=== PATIENT | female | born 1955 | race Caucasian/White ===

== ENCOUNTER 2016-12-20 22:12 | Outpatient (CLI) | payer MEDICARE, BC, MEDICAID ==
[~2016-12-20 22:12] MED LIST: AGM875T PO; ASCO500T75 PO; ASPI-586 PO; CALC600T12 PO; CETI10TA17 PO; LISI-552 PO; MECL-106 PO; MELO7.5T46 PO; METH4TAB PO; METO-351 PO; MIRA50TA PO; OMG1KC PO; PRED5TAB PO; TRAM50TA2 PO; ZYRTEC
--- OUTSIDE RECORDS SUMMARY | 2016-12-20 22:15 | XMS REPORT | Continuity of Care Document ---
Author Author [facility] Organization [facility] Address Unknown Phone Unavailable Care Team Providers Care Hosiery Pairer Name Role Phone BEATRIZ DURBIN DO PCP Insurance Providers Payer Name Policy Number Subscriber Name Relationship [employer] Medicare [id number] Rae Prince 18 Self / Same As Patient Medicaid [place] [id number] Rae Prince 18 Self / Same As Patient Advance Directives Directive Response Recorded Date/Time Advance Directives Yes 07/18/16 7:04pm Health Care Power of Director Of Rehabilitation Y LINDY PRINCE SPOUSE 07/18/16 7:04pm Organ Donor Yes 07/18/16 7:04pm Problems Active Problems Medical Problem Onset Date Status Rash and nonspecific skin eruption Unknown Acute Medications Current Home Medications Medication Dose Units Route Directions Days/Qty Instructions Start Date Cetirizine Hcl (Zyrtec) 10 Mg 10 Mg Oral Daily 04/28/13 Lisinopril 20 Mg 20 Mg Oral Bedtime 03/19/16 Meclizine Hcl 25 Mg 25 Mg Oral Three Times A Day as needed for Dizziness 03/19/16 [place] 3 Polyunsat Fatty Acids 1,000 Mg 1,000 Mg Oral Daily ONE IN AM 2 AT BEDTIME 03/19/16 [place] 3 Polyunsat Fatty Acids 1,000 Mg 2,000 Mg Oral Bedtime ONE IN AM 2 TABLETS AT BEDTIME 03/19/16 Metoprolol Succinate 25 Mg 25 Mg Oral Bedtime 03/19/16 Meloxicam 7.5 Mg 7.5 Mg Oral Twice A Day 03/19/16 Aspirin 81 Mg 81 Mg Oral Daily 03/19/16 Calcium Carbonate 600 Mg 600 Mg Oral Daily 03/19/16 Tramadol Hcl 50 Mg 100 Mg Oral Every 6 Hours for Pain TWO TABLETS OF 50 MG FOR 100 MG TOTAL DOSE 03/19/16 Mirabegron 50 Mg 50 Mg Oral Daily 07/18/16 Prednisone 5 Mg 40 Mg Oral As Directed 36 40 mg by mouth on day 1. Decrease by 5 mg by mouth daily until gone. 07/18/16 Past Home Medications Medication Directions Ordered Status [Zte] , 09/07/12 Discontinued Amoxicillin/Clavulanate Potassium 1 Tab Tablet, 1 Tab Oral Twice A Day Discontinued Methylprednisolone 4 Mg/Dose-Pack Tab.ds.pk, 0 Oral As Directed 09/07/12 Discontinued Ascorbic Acid 500 Mg Tablet, 500 Mg Oral Daily 03/19/16 Discontinued Social History Social History Problem Response Recorded Date/Time Recent Foreign Travel No 11/13/2016 1:13pm Recent Hopitalizations No 07/18/2016 7:04pm Hospital Discharge Instructions No hospital discharge instructions. Plan of Care Discharge Date 11/13/16 1:40pm Prescriptions See Medication Section Functional Status No functional status results. Allergies, Adverse Reactions, Alerts Allergen Type Severity Reaction Status Last Updated meperidine HCl Allergy Unknown Active 03/03/16 oxycodone HCl Allergy Unknown Active 03/03/16 Acetaminophen Allergy Unknown Active 03/03/16 Methadone Allergy Unknown Active 03/03/16 TAPE Allergy Unknown Active 03/03/16 Immunizations No immunization records. Vital Signs No known vital signs results. Results Laboratory Results Test Name Result Units Flags Reference Collection Date/Time Result Date/ Time Comments Total Bilirubin 0.8 MG/DL 0.1-1.0 10/14/2016 10:23am 10/14/2016 10: 49am Direct Bilirubin 0.3 MG/DL 0.0-0.3 10/14/2016 10:23am 10/14/2016 10: 49am Indirect Bilirubin 0.5 MG/DL 10/14/2016 10:23am 10/14/2016 10:49am Alkaline Phosphatase 74 U/L 40-136 10/14/2016 10:23am 10/14/2016 10: 49am Aspartate Amino Transf (AST/SGOT) 16 U/L 5-34 10/14/2016 10:23am 2015 10:49am Alanine Aminotransferase (ALT/SGPT) 7 U/L 0-55 10/14/2016 10:23am 10/14 10:49am Total Protein 6.0 G/DL L 6.4-8.2 10/14/2016 10:23am 10/14/2016 10:49am Albumin 3.4 G/DL 3.2-4.5 10/14/2016 10:23am 10/14/2016 10:49am Triglycerides Level 86 MG/DL <150 10/14/2016 10:23am 10/14/2016 10: 49am Cholesterol Level 147 MG/DL < 200 10/14/2016 10:23am 10/14/2016 10: 49am HDL Cholesterol 35 MG/DL L 40-60 10/14/2016 10:23am 10/14/2016 10:49am LDL Cholesterol Direct 96 MG/DL 1-129 10/14/2016 10:23am 10/14/2016 10: 49am VLDL Cholesterol 17 MG/DL 5-40 10/14/2016 10:23am 10/14/2016 10:49am Procedures Procedure Status Date Provider(s) 48 hour Holter monitoring Completed 11/06/16 VAMSHI RODRIGUES MD 48 hour Holter monitoring Completed 11/06/16 VAMSHI RODRIGUES MD Encounters Encounter Location Arrival/Admit Date Discharge/Depart Date Attending Provider Departed Clinic [facility] 11/13/16 1:14pm 11/13/16 1: 40pm VAMSHI RODRIGUES MD Registered Clinic [facility] 11/06/16 9:59am VAMSHI RODRIGUES MD Registered Clinic [facility] 10/14/16 9:59am SARIAH PACHECO
== END 2016-12-21 06:30 | disposition home or self-care (01) ==
LOC: SLEEP 22:12
PROVIDERS: ATTEND Nurse Practitioner Family
DX: G47.36 Sleep related hypoventilation in conditions classified elsewhere (principal); R06.83 Snoring
CPT/HCPCS: 95810

== ENCOUNTER 2017-03-04 15:56 | Emergency (ER) | payer BC, MEDICARE, MEDICAID ==
[~2017-03-04] VITALS: Ht 157.5 cm; Wt 100.7 kg
--- NOTE | 2017-03-04 16:10 | ED Chest Pain ---
General Chief Complaint: Chest Wall/Rib Pain Stated Complaint: TROUBLE BREATHING Source: patient Exam Limitations: no limitations History of Present Illness Time seen by provider: 16:08 Initial Comments To ER with reports of pain when breathing. Pain is in the right lung she states pain she is unable to take a deep breath because of this pain. She does not feel short of breath, only has pain with breathing. She was originally started on oxygen at 1 L/m at night per nasal cannula for sleep apnea. She states that she's had troubles with nasal congestion seems to be brought on by wearing the oxygen. She has tried Flonase and humidified oxygen without relief. She has had a cough that is been nonproductive starting today. No fevers or chills. No rhinorrhea sore throat. Timing/Duration: 12-24 hours Severity/Quality: sharp Radiation: no radiation Activities at Onset: none ASA po QUENCHING MACHINE OPERATOR: No NTG SL QUENCHING MACHINE OPERATOR: No Allergies and Home Medications Allergies Coded Allergies: acetaminophen (Verified Allergy, Unknown, 03/03/16) meperidine HCl (Verified Allergy, Unknown, 03/03/16) methadone (Verified Allergy, Unknown, 03/03/16) oxycodone HCl (Verified Allergy, Unknown, 03/03/16) Uncoded Allergies: TAPE (Allergy, Unknown, 03/03/16) Home Medications Allopurinol 300 Mg Tablet, #30 (Reported) Aspirin 81 Mg Tablet.dr, 81 MG PO DAILY, (Reported) Calcium Carbonate 600 Mg Tablet, 600 MG PO DAILY, (Reported) Cetirizine Hcl 10 Mg Tablet, 10 MG PO DAILY, (Reported) Gabapentin 100 Mg Capsule, #90 (Reported) Lansoprazole 30 Mg Capsule.dr, #30 (Reported) Lisinopril 20 Mg Tablet, 20 MG PO HS, (Reported) Meclizine HCl 25 Mg Tablet, 25 MG PO TID PRN for DIZZINESS, (Reported) Meloxicam 7.5 Mg Tablet, 7.5 MG PO BID, (Reported) Metoprolol Succinate 25 Mg Tab.er.24h, 25 MG PO HS, (Reported) Mirabegron 50 Mg Tab.er.24h, 50 MG PO DAILY, (Reported) [place] 3 Polyunsat Fatty Acids 1,000 Mg Cap, 1,000 MG PO DAILY, (Reported) ONE IN AM 2 AT BEDTIME [place] 3 Polyunsat Fatty Acids 1,000 Mg Cap, 2,000 MG PO HS, (Reported) ONE IN AM 2 TABLETS AT BEDTIME Tramadol HCl 50 Mg Tablet, 100 MG PO Q6H, (Reported) TWO TABLETS OF 50 MG FOR 100 MG TOTAL DOSE Review of Systems Constitutional: see HPI EENTM: No Symptoms Reported Respiratory: See HPI, Denies Shortness of Air Cardiovascular: No Symptoms Reported Gastrointestinal: No Symptoms Reported Genitourinary: No Symptoms Reported Musculoskeletal: no symptoms reported Skin: no symptoms reported Psychiatric/Neurological: No Symptoms Reported Endocrine: No Symptoms Reported Hematologic/Lymphatic: No Symptoms Reported Past Bhbusff-Sythpe-Rujgmi Hx Patient Social History Recent Foreign Travel: No Contact w/Someone Who Travel: No Recent Hopitalizations: No Immunizations Up To Date Tetanus Booster (TDap): Unknown Surgeries HX Surgeries: Yes (cysts removed from R hip, lap band, back surgery, heart cath , cataracts) Surgeries: Abdominal, Orthopedic Respiratory Hx Respiratory Disorders: No Cardiovascular Hx Cardiac Disorders: Yes (SVT) Cardiac Disorders: Hypertension, Irregular Heartbeat Neurological Hx Neurological Disorders: No Reproductive System Hx Reproductive Disorders: No Genitourinary Hx Genitourinary Disorders: Yes (overactive bladder) Gastrointestinal Hx Gastrointestinal Disorders: No Musculoskeletal Hx Musculoskeletal Disorders: Yes (multiple back surgeries) Musculoskeletal Disorders: Fibromyalgia Endocrine Hx Endocrine Disorders: No HEENT HX ENT Disorders: No Cancer Hx Cancer: No Psychosocial Hx Psychiatric Problems: No Blood Transfusions Hx Blood Disorders: No Physical Exam Vital Signs Vital Sign - Last 12Hours 03/04/17 16:00 Temp 98.1 Pulse 67 Resp 18 B/P (MAP) 144/76 Pulse Ox 99 O2 Delivery Room Air Capillary Refill : General Appearance: No Apparent Distress, WD/WN, Other (arrival to the emergency room 6 she is ambulatory to that room. There is no redness or distress. Oxygen 99 percent on room air. She has very flat somber personality and dwells on her clogged nose that the oxygen that she wears only at night has been causing.) HEENT: PERRL/EOMI, TMs Normal Neck: Full Range of Motion, Normal Inspection Respiratory: Normal Breath Sounds, No Accessory Muscle Use, No Respiratory Distress Cardiovascular: Regular Rate, Rhythm, Normal Peripheral Pulses Gastrointestinal: Normal Bowel Sounds, Non Tender, Soft Extremity: Normal Capillary Refill, Normal Inspection Neurologic/Psychiatric: Alert, Oriented x3, No Motor/Sensory Deficits Skin: Normal Color, Warm/Dry Progress/Results/Core Measures Results/Orders Lab Results Laboratory Tests Test 03/04/17 16:06 Range/Units White Blood Count 8.3 4.3-11.0 10^3/uL Red Blood Count 4.19 L 4.35-5.85 10^6/uL Hemoglobin 12.9 11.5-16.0 G/DL Hematocrit 39 35-52 % Mean Corpuscular Volume 93 80-99 FL Mean Corpuscular Hemoglobin 31 25-34 PG Mean Corpuscular Hemoglobin Concent 33 32-36 G/DL Red Cell Distribution Width 13.3 10.0-14.5 % Platelet Count 197 130-400 10^3/uL Mean Platelet Volume 10.8 H 7.4-10.4 FL Neutrophils (%) (Auto) 63 42-75 % Lymphocytes (%) (Auto) 26 12-44 % Monocytes (%) (Auto) 8 0-12 % Eosinophils (%) (Auto) 3 0-10 % Basophils (%) (Auto) 0 0-10 % Neutrophils # (Auto) 5.3 1.8-7.8 X 10^3 Lymphocytes # (Auto) 2.1 1.0-4.0 X 10^3 Monocytes # (Auto) 0.7 0.0-1.0 X 10^3 Eosinophils # (Auto) 0.3 0.0-0.3 10^3/uL Basophils # (Auto) 0.0 0.0-0.1 10^3/uL Sodium Level 140 135-145 MMOL/L Potassium Level 4.1 3.6-5.0 MMOL/L Chloride Level 105 98-107 MMOL/L Carbon Dioxide Level 26 21-32 MMOL/L Anion Gap 9 5-14 MMOL/L Blood Urea Nitrogen 12 7-18 MG/DL Creatinine 0.66 0.60-1.30 MG/DL Estimat Glomerular Filtration Rate > 60 BUN/Creatinine Ratio 18 Glucose Level 91 70-105 MG/DL Calcium Level 9.2 8.5-10.1 MG/DL Total Bilirubin 0.7 0.1-1.0 MG/DL Aspartate Amino Transf (AST/SGOT) 18 5-34 U/L Alanine Aminotransferase (ALT/SGPT) 9 0-55 U/L Alkaline Phosphatase 86 40-136 U/L Troponin I < 0.30 <0.30 NG/ML B-Type Natriuretic Peptide 19.9 <100.0 PG/ML Total Protein 6.6 6.4-8.2 G/DL Albumin 3.6 3.2-4.5 G/DL My Orders Orders - TRESSA REYNOSO APRN Cbc With Automated Diff (03/04/17 16:06) Comprehensive Metabolic Panel (03/04/17 16:06) BNP (03/04/17 16:06) Chest Pa/Lat (2 View) (03/04/17 16:06) Troponin I (03/04/17 16:06) Saline Lock/Iv-Start (03/04/17 16:06) Ketorolac Injection (Toradol Injection) (03/04/17 16:15) Ct Angio Chest W (03/04/17 16:35) Iohexol Injection (Omnipaque 350 Mg/Ml 1 (03/04/17 17:00) Ns (Ivpb) (Sodium Chloride 0.9% Ivpb Bag (03/04/17 17:00) Dexamethasone Pf Injection (Decadron Pf (03/04/17 18:00) Amoxicillin/Clavulanate Tablet (Augmenti (03/04/17 18:00) Medications Given in ED Current Medications Medications Dose Ordered Sig/Pawan Route Start Time Stop Time Status Last Admin Dose Admin Iohexol 150 ml ONCE ONCE IV 03/04/17 17:00 03/04/17 17:01 DC 03/04/17 17:09 140 ML Ketorolac Tromethamine 30 mg ONCE ONCE IVP 03/04/17 16:15 03/04/17 16:16 DC 03/04/17 16:34 30 MG Sodium Chloride 100 ml ONCE ONCE IV 03/04/17 17:00 03/04/17 17:01 DC 03/04/17 17:09 80 ML Vital Signs/I&O Vital Sign - Last 12Hours 03/04/17 16:00 Temp 98.1 Pulse 67 Resp 18 B/P (MAP) 144/76 Pulse Ox 99 O2 Delivery Room Air Diagnostic Imaging Diagonstic Imaging: Xray Plain Films/CT/US/NM/MRI: chest Comments NAME: [facility] REC#: [id number] PT STATUS: REG ER : 1955 PHYSICIAN: TRESSA REYNOSO APRN ADMIT DATE: 03/04/17/ER Draft Date of Exam:03/04/17 CHEST PA/LAT (2 VIEW) INDICATION: Shortness of breath. EXAMINATION: PA and lateral chest. FINDINGS: The heart size and pulmonary vascularity are normal. The lungs are clear. There are no effusions or pneumothoraces. IMPRESSION: Negative chest. Dictated on workstation # [id number] Dict: 03/04/17 1627 Trans: 03/04/17 1629 [id number] Interpreted by: SILAS MCLEOD Electronically signed by: NAME: [facility] REC#: [id number] PT STATUS: REG ER : 1955 PHYSICIAN: TRESSA REYNOSO APRN ADMIT DATE: 03/04/17/ER Draft Date of Exam:03/04/17 CT ANGIO CHEST W INDICATION: Difficulty breathing and cough. TECHNIQUE: CTA chest obtained with IV contrast bolus and axial slices and MIP reconstructions. FINDINGS: The pulmonary parenchymal vessels are well opacified with no CT evidence of pulmonary emboli. There is no evidence of aortic dissection or aneurysm. The esophagus is prominent and fluid filled, patient does have a laparoscopic band in place. Consider correlation with esophagram if clinically warranted. There is a calcified node in the right hilum as a calcified granuloma in the right lower lobe. There is a mildly prominent node in the right hilum which is not calcified, measuring about 1.3 cm. There are no enlarged axillary nodes. There is also calcified granuloma in the left midlung. There is some mild infiltrate in the left lower lobe in the superior segment as well as some patchy infiltrates in the left upper lobe anteriorly. There is an indeterminate lesion with a more nodular appearance in the right upper lobe posteriorly and inferiorly, measuring about 9 mm, as well as a nodular-appearing lesion in the superior segment of the right lower lobe measuring about 8 mm. IMPRESSION: 1. No CT evidence of pulmonary emboli or aortic dissection. There is cardiomegaly. There is a fluid-filled appearance of the esophagus which may be related to patient's laparoscopic band, suggest esophagram for further evaluation as clinically warranted. 2. There are old granulomatous changes in the right hilum and there are calcified granulomata in both lungs. 3. There are patchy areas of infiltrate in the superior segment of the right lower lobe and in the left upper lobe anteriorly, probably due to pneumonia. There are indeterminate noncalcified nodular densities however in the right upper lobe inferiorly and in the right lower lobe superiorly. While these may be inflammatory in nature, the possibility of neoplasm is not excluded. Recommend short-term followup chest CT in one to two months to see if these resolve with treatment for pneumonia. If these persist, then further workup is necessary. Dictated on workstation # [id number] Dict: 03/04/17 1724 Trans: 03/04/17 1736 [id number] Interpreted by: CHELLE WILEY MD Electronically signed by: Departure Impression Impression: Primary Impression: Pleurodynia Additional Impression: Pneumonia Disposition: 01 HOME, SELF-CARE Condition: Stable Departure-Patient Inst. Decision time for Depature: 16:35 Referrals: NO,LOCAL PHYSICIAN (PCP/Family) Primary Care Physician Patient Instructions: Community-Acquired Pneumonia in Adults Add. Discharge Instructions: 1. Return to ER for any concerns 2. Follow-up with your doctor next week. They will need to arrange for repeat chest x-ray/imaging IN several weeks to ensure that the APPEARANCE of your chest x-ray has improved He will need to schedule All discharge instructions reviewed with patient and/ or family. Voiced understanding. Scripts Amoxicillin/Potassium Clav (Augmentin 875-125 Tablet) 1 Each Tablet 1 EACH PO BID for 7 Days, #14 TAB Prov: TRESSA REYNOSO APRN 03/04/17 TRESSA REYNOSO APRN Mar 04, 2017 16:10
[2017-03-04] MEDS ORDERED: ALLO300T2 PO (16:13)
[2017-03-04] MEDS ORDERED: GABA-486 PO (16:13)
[2017-03-04] MEDS ORDERED: LANS30CA PO (16:13)
[2017-03-04] MEDS ORDERED: KETOROLAC 30 MG/ML VIAL IVP ONE (16:15)
[2017-03-04 16:22] LABS: BASOPHILS % (AUTO) 0 % (0-10); EOSINOPHILS # (AUTO) 0.3 10^3/uL (0.0-0.3); EOSINOPHILS % (AUTO) 3 % (0-10); LYMPHOCYTES # (AUTO) 2.1 X 10^3 (1.0-4.0); LYMPHOCYTES % (AUTO) 26 % (12-44); MEAN CORPUSCULAR HEMOGLOBIN 31 PG (25-34); MEAN CORPUSCULAR HGB CONC 33 G/DL (32-36); MEAN CORPUSCULAR VOLUME 93 FL (80-99); MEAN PLATELET VOLUME 10.8 FL (7.4-10.4); MONOCYTES # (AUTO) 0.7 X 10^3 (0.0-1.0); MONOCYTES % (AUTO) 8 % (0-12); NEUTROPHILS # (AUTO) 5.3 X 10^3 (1.8-7.8); NEUTROPHILS % (AUTO) 63 % (42-75); PLATELET COUNT 197 10^3/uL (130-400); RED BLOOD COUNT 4.19 10^6/uL (4.35-5.85); RED CELL DISTRIBUTION WIDTH 13.3 % (10.0-14.5); WHITE BLOOD COUNT 8.3 10^3/uL (4.3-11.0)
--- NOTE | 2017-03-04 16:30 | Diagnostic Imaging Report ---
INDICATION: Shortness of breath. EXAMINATION: PA and lateral chest. FINDINGS: The heart size and pulmonary vascularity are normal. The lungs are clear. There are no effusions or pneumothoraces. IMPRESSION: Negative chest. Dictated by: Dictated on workstation # [id number]
[2017-03-04 16:39] LABS: ALANINE AMINOTRANSFERASE 9 U/L (0-55); ALBUMIN 3.6 G/DL (3.2-4.5); ANION GAP 9 MMOL/L (5-14); ASPARTATE AMINO TRANSFERASE 18 U/L (5-34); BILIRUBIN,TOTAL 0.7 MG/DL (0.1-1.0); BLOOD UREA NITROGEN 12 MG/DL (7-18); BUN/CREATININE RATIO 18; CALCIUM 9.2 MG/DL (8.5-10.1); CARBON DIOXIDE 26 MMOL/L (21-32); CHLORIDE 105 MMOL/L (98-107); CREATININE SERUM 0.66 MG/DL (0.60-1.30); GFR ESTIMATED > 60; GLUCOSE 91 MG/DL (70-105); POTASSIUM 4.1 MMOL/L (3.6-5.0); SODIUM 140 MMOL/L (135-145); TOTAL PROTEIN 6.6 G/DL (6.4-8.2)
[2017-03-04 16:45] LABS: TROPONIN I < 0.30 NG/ML (<0.30)
[2017-03-04] MEDS ORDERED: IOHEXOL 350 MG/ML 150 ML (OMNIPAQUE 350) VIAL IV ONE (17:00)
[2017-03-04] MEDS ORDERED: NS 100 ML (IVPB) BAG IV ONE (17:00)
--- NOTE | 2017-03-04 17:36 | Diagnostic Imaging Report ---
INDICATION: Difficulty breathing and cough. TECHNIQUE: CTA chest obtained with IV contrast bolus and axial slices and MIP reconstructions. FINDINGS: The pulmonary parenchymal vessels are well opacified with no CT evidence of pulmonary emboli. There is no evidence of aortic dissection or aneurysm. The esophagus is prominent and fluid filled, patient does have a laparoscopic band in place. Consider correlation with esophagram if clinically warranted. There is a calcified node in the right hilum as a calcified granuloma in the right lower lobe. There is a mildly prominent node in the right hilum which is not calcified, measuring about 1.3 cm. There are no enlarged axillary nodes. There is also calcified granuloma in the left midlung. There is some mild infiltrate in the left lower lobe in the superior segment as well as some patchy infiltrates in the left upper lobe anteriorly. There is an indeterminate lesion with a more nodular appearance in the right upper lobe posteriorly and inferiorly, measuring about 9 mm, as well as a nodular-appearing lesion in the superior segment of the right lower lobe measuring about 8 mm. IMPRESSION: 1. No CT evidence of pulmonary emboli or aortic dissection. There is cardiomegaly. There is a fluid-filled appearance of the esophagus which may be related to patient's laparoscopic band, suggest esophagram for further evaluation as clinically warranted. 2. There are old granulomatous changes in the right hilum and there are calcified granulomata in both lungs. 3. There are patchy areas of infiltrate in the superior segment of the right lower lobe and in the left upper lobe anteriorly, probably due to pneumonia. There are indeterminate noncalcified nodular densities however in the right upper lobe inferiorly and in the right lower lobe superiorly. While these may be inflammatory in nature, the possibility of neoplasm is not excluded. Recommend short-term followup chest CT in one to two months to see if these resolve with treatment for pneumonia. If these persist, then further workup is necessary. Dictated by: Dictated on workstation # [id number]
[2017-03-04] MEDS ORDERED: AMOX-358 PO (17:53)
[2017-03-04] MEDS ORDERED: AUGMENTIN 875 MG TAB (AMOXICILLIN/CLAVULANATE) PO SCH (18:00)
[2017-03-04] MEDS ORDERED: DEXAMETHASONE PF 10 MG/ML (DECADRON) VIAL IV ONE (18:00)
[2017-03-04 18:13] VITALS: BP 126/85
== END 2017-03-04 18:12 | disposition home or self-care (01) ==
LOC: EDUNIT# 15:56 → ER 15:59
DX: J18.9 Pneumonia, unspecified organism (principal); R91.8 Other nonspecific abnormal finding of lung field; I51.7 Cardiomegaly; I10 Essential (primary) hypertension; G47.30 Sleep apnea, unspecified; Z79.82 Long term (current) use of aspirin; Z79.899 Other long term (current) drug therapy
CPT/HCPCS: 36415; 71020; 71275; 80053; 83880; 84484; 85025; 96374; 96375

== ENCOUNTER 2017-03-19 05:31 | Outpatient (CLI) | payer BC, MEDICARE, MEDICAID ==
[~2017-03-19] VITALS: Ht 157.5 cm; Wt 100.8 kg
[~2017-03-19 05:31] MED LIST changes: +ALLO300T2 PO; +AMOX-358 PO; +GABA-486 PO; +LANS30CA PO
[2017-03-19] MEDS ORDERED: FOLI200T11 PO (10:47)
[2017-03-19] MEDS ORDERED: ASCO-262 PO (10:47)
[2017-03-19] MEDS ORDERED: CHOL100045 PO (10:47)
== END 2017-03-19 10:50 ==
LOC: PREOP 05:31
PROVIDERS: ATTEND Urology
DX: Z01.818 Encounter for other preprocedural examination (principal); N39.46 Mixed incontinence; N32.81 Overactive bladder; N36.42 Intrinsic sphincter deficiency (ISD)

== ENCOUNTER 2017-03-24 08:05 | Day surgery (SDC) | payer BC, MEDICARE ==
[~2017-03-24] VITALS: Ht 157.5 cm; Wt 100.8 kg
[~2017-03-24 08:05] MED LIST changes: +ASCO-262 PO; +CHOL100045 PO; +FOLI200T11 PO
--- NOTE | 2017-03-24 08:10 | Progress Note-Pre Operative ---
Pre-Operative Progress Note H&P Reviewed The H&P was reviewed, patient examined and no changes noted. Date H&P Reviewed: March 24, 2017 Time H&P Reviewed: 08:23 Pre-Operative Diagnosis: MIXED INCONTINENCE, OAB, ISD BARNEY MCCANN MD March 24, 2017 8:10 am
--- NOTE | 2017-03-24 08:11 | Progress Note-Post Operative ---
Post-Operative Progess Note Surgeon (s)/Italian Lecturer (s) Surgeon BARNEY MCCANN MD Italian Lecturer: N/A Pre-Operative Diagnosis MIXED INCONTINENCE, OAB, ISD Post-Operative Diagnosis SAME Post-Op Procedure Note Date of Procedure: March 24, 2017 Name of Procedure Performed: MACROPLASTIQUE IMPLANT Description of the Procedure: PER DICTATION Findings of the Procedure SAME Anesthesia Type GENERAL Estimated blood loss (mL): NEGLIGIBLE Specimen(s) collected/removed NONE BARNEY MCCANN MD March 24, 2017 8:11 am
[2017-03-24 08:12] VITALS: BP 167/94
--- NOTE | 2017-03-24 08:13 | Discharge Inst-Urology ---
Discharge Inst-Urology Discharge Medications New, Converted, or Re-newed RX: RX on Chart Patient Instructions/Follow Up Plan Please make appointment to been seen in office in 4 weeks. Rest for 2 weeks tomorrow start showers no bath Keep bowels soft and moving Increase oral fluids for 48 hours and then as needed. Diet and Activity as tolerated. If questions or concerns contact your physician Or seek help at emergency department. BARNEY MCCANN MD March 24, 2017 8:13 am
[2017-03-24] MEDS ORDERED: proPOfol 200 MG/20 ML (DIPRIVAN) VIAL IV ONE ×2 (08:22→09:31)
[2017-03-24] MEDS ORDERED: fentaNYL INJECTION 100 MCG/2 ML AMP ONE ×2 (08:23→10:31)
[2017-03-24] MEDS ORDERED: MIDAZOLAM 2 MG/2 ML (VERSED) VIAL ONE (08:23)
[2017-03-24] MEDS ORDERED: LEVOFLOXACIN 250 MG/D5W 50 ML (PRE-MIX) IV ONE (08:30)
[2017-03-24] MEDS ORDERED: LACTATED RINGERS 1,000 ML IV PRN (08:58)
[2017-03-24] MEDS ORDERED: MIDAZOLAM 2 MG/2 ML (VERSED) VIAL IVP ONE (09:00)
[2017-03-24] MEDS ORDERED: LACTATED RINGERS 1,000 ML IV ONE (09:31)
[2017-03-24] MEDS ORDERED: ONDANSETRON 4 MG/2 ML (SDV) Z0FRAN ONE (09:31)
[2017-03-24] MEDS ORDERED: LIDOCAINE PF 2% 10 ML (XYLOCAINE) AMP ONE (09:31)
[2017-03-24] MEDS ORDERED: SEVOFLURANE (ULTANE) 15 ML INHAL SOLN ONE (09:31)
[2017-03-24] MEDS ORDERED: DEXAMETHASONE PF 10 MG/ML (DECADRON) VIAL ONE (09:31)
[2017-03-24] MEDS ORDERED: morphine INJ 10 MG/ML 1ML (SYR OR VIAL) ONE (09:51)
[2017-03-24] MEDS ORDERED: morphine INJ 10 MG/ML 1ML (SYR OR VIAL) IVP PRN (10:00)
[2017-03-24] MEDS ORDERED: ONDANSETRON 4 MG/2 ML (SDV) Z0FRAN IVP PRN (10:00)
[2017-03-24] MEDS ORDERED: fentaNYL INJECTION 100 MCG/2 ML AMP IVP PRN (10:00)
[2017-03-24 11:05] VITALS: BP 146/73
--- NOTE | 2017-03-24 11:22 | OPERATIVE REPORT ---
DATE OF SERVICE: 03/24/2017 PREOPERATIVE DIAGNOSIS: Mixed incontinence with overactive bladder and intrinsic sphincter deficiency. POSTOPERATIVE DIAGNOSIS: Mixed incontinence with overactive bladder and intrinsic sphincter deficiency. OPERATION PERFORMED: Macroplastique implant. ANESTHESIA: General. COMPLICATIONS: None. PROCEDURE: Under satisfactory general anesthesia, with the patient in lithotomy position, genitalia are prepped and draped in usual sterile fashion. Cystoscope was introduced in the bladder and macroplastique implant was injected in the mid urethra at the 6 o'clock and full syringe and at 2 and 10 o'clock half syringe. There was excellent coaptation of the mid urethra, minimal bleeding. I removed the cystoscope, performed the manual Valsalva maneuver; it was negative. I reinserted the cystoscope to empty the bladder. The patient tolerated procedure and anesthesia well, was sent to recovery room in stable condition. Job ID: [id number] DocumentID: [id number] Dictated Date: 03/24/2017 09:41:00 High School Counselor Date: 03/24/2017 11:22:05 Dictated By: BARNEY MCCANN MD
[2017-03-24] MEDS ORDERED: PHENAZOPYRIDINE 100 MG (PYRIDIUM) TABLET PO ONE (11:45)
[2017-03-24 11:55] VITALS: BP 145/79
[2017-03-24] MEDS ORDERED: PHEN-640 PO (12:04)
[2017-03-24] MEDS ORDERED: NITR-65 PO (12:04)
[2017-03-24 12:20] VITALS: BP 171/95
[2017-03-24 12:25] VITALS: BP 171/95
== END 2017-03-24 12:25 | disposition home or self-care (01) ==
LOC: SDC 08:05
PROVIDERS: ATTEND Urology
DX: N36.42 Intrinsic sphincter deficiency (ISD) (principal); N39.46 Mixed incontinence; N32.81 Overactive bladder; I10 Essential (primary) hypertension; Z79.899 Other long term (current) drug therapy
CPT/HCPCS: 87081

== ENCOUNTER 2017-05-08 11:07 | Outpatient (CLI) | payer BC, MEDICARE, MEDICAID ==
[~2017-05-08] VITALS: Ht 157.5 cm; Wt 100.7 kg
[~2017-05-08 11:07] MED LIST changes: +NITR-65 PO; +PHEN-640 PO
[2017-05-13] MEDS ORDERED: CIPR-225 PO (10:43)
== END 2017-05-08 11:24 ==
LOC: PREOP 11:07
PROVIDERS: ATTEND Urology
DX: Z01.818 Encounter for other preprocedural examination (principal)

== ENCOUNTER 2017-05-12 06:06 | Day surgery (SDC) | payer MEDICARE, MEDICAID ==
[~2017-05-12] VITALS: Ht 157.5 cm; Wt 100.7 kg
[2017-05-12 06:35] VITALS: BP 143/81
[2017-05-12] MEDS: LACTATED RINGERS 1,000 ML IV PRN ×2 (06:35→08:07)
[2017-05-12] MEDS ORDERED: cefTRIAXone 1 GM (ROCEPHIN) VIAL ONE (06:44)
[2017-05-12] MEDS ORDERED: NS (IVPB) 50 ML ONE (06:45)
[2017-05-12] MEDS ORDERED: MIDAZOLAM 2 MG/2 ML (VERSED) VIAL ONE (06:59)
[2017-05-12] MEDS ORDERED: LACTATED RINGERS 1,000 ML IV ONE ×2 (06:59→08:32)
[2017-05-12] MEDS ORDERED: proPOfol 200 MG/20 ML (DIPRIVAN) VIAL IV ONE (06:59)
[2017-05-12] MEDS ORDERED: LIDOCAINE PF 2% 5 ML (XYLOCAINE) VIAL ONE (06:59)
[2017-05-12] MEDS ORDERED: fentaNYL INJECTION 100 MCG/2 ML AMP ONE (06:59)
[2017-05-12] MEDS ORDERED: SEVOFLURANE (ULTANE) 15 ML INHAL SOLN ONE ×4 (06:59→08:32)
[2017-05-12] MEDS ORDERED: cefTRIAXone 1 GM/NS 50 ML IVPB IV ONE ×2 (07:00)
--- NOTE | 2017-05-12 07:06 | Progress Note-Pre Operative ---
Pre-Operative Progress Note H&P Reviewed The H&P was reviewed, patient examined and no changes noted. Date Seen by Provider: May 12, 2017 Time Seen by Provider: 07:05 Date H&P Reviewed: May 12, 2017 Time H&P Reviewed: 07:05 Pre-Operative Diagnosis: MIXED INCONTINENCE, ISD, OAB BARNEY MCCANN MD May 12, 2017 7:06 am
[2017-05-12] MEDS ORDERED: LIDOCAINE/EPI 1%-1:200,000 (XYLOCAINE) 30 ML VIAL ONE (07:16)
[2017-05-12] MEDS ORDERED: ESTRADIOL VAGINAL CREAM 42.5 GM (ESTRACE) VG ONE (07:16)
[2017-05-12] MEDS ORDERED: DEXAMETHASONE PF 10 MG/ML (DECADRON) VIAL ONE (08:32)
[2017-05-12] MEDS ORDERED: ONDANSETRON 4 MG/2 ML (SDV) Z0FRAN ONE (08:32)
--- NOTE | 2017-05-12 08:36 | Progress Note-Post Operative ---
Post-Operative Progess Note Surgeon (s)/Waterproofing Mixer (s) Surgeon BARNEY MCCANN MD Waterproofing Mixer: N/A Pre-Operative Diagnosis MIXED INCONTINENCE, ISD, OAB Post-Operative Diagnosis SAME Procedure & Operative Findings Date of Procedure 05/12/17 Procedure Performed/Findings PVS AND CYSTO FINDINGS PER DICTATION Anesthesia Type GENERAL Estimated Blood Loss Estimated blood loss (mL): LESS THAN 50CC Specimens/Packing Specimens Removed NONE Packing: ESTRACE VAGINAL PACK BARNEY MCCANN MD May 12, 2017 8:36 am
[2017-05-12] MEDS ORDERED: KETOROLAC 30 MG/ML VIAL IV PRN (08:45)
[2017-05-12] MEDS ORDERED: MELOXICAM 7.5 MG (MOBIC) TABLET PO SCH (09:00)
[2017-05-12] MEDS ORDERED: MECLIZINE 25 MG (ANTIVERT) TAB PO SCH (09:00)
[2017-05-12] MEDS ORDERED: ALLOPURINOL 300 MG (ZYLOPRIM) TAB PO SCH (09:00)
[2017-05-12] MEDS ORDERED: GABAPENTIN 100 MG (NEURONTIN) CAP PO SCH (09:00)
[2017-05-12] MEDS ORDERED: ONDANSETRON 4 MG/2 ML (SDV) Z0FRAN IVP PRN (09:00)
[2017-05-12] MEDS ORDERED: HYDROmorphone (DILAUDID) 2 MG/ML VIAL IVP PRN (09:00)
[2017-05-12] MEDS ORDERED: morphine INJ 10 MG/ML 1ML (SYR OR VIAL) IVP PRN (09:00)
[2017-05-12 09:30] VITALS: BP 162/74
[2017-05-12] MEDS: LACTATED RINGERS 1,000 ML IV SCH ×2 (10:05→14:49)
[2017-05-12 12:00] VITALS: BP 137/72
[2017-05-12] MEDS: CALCIUM CARBONATE 600 MG (CALCARB) TAB PO SCH (12:54)
[2017-05-12] MEDS: LORATADINE (CLARITIN) 10 MG TAB PO SCH (12:55)
[2017-05-12] MEDS: VITAMIN D3 1,000 UNITS (CHOLECALCIFEROL) TABLET PO SCH ×3 (12:56→21:14)
[2017-05-12] MEDS: ASCORBIC ACID (VIT C) 500 MG TABLET PO SCH (14:03)
[2017-05-12] MEDS ORDERED: PATIENT MAY USE OWN MEDS, ALL MC SCH (14:15)
[2017-05-12] MEDS: ALLOPURINOL 300 MG (ZYLOPRIM) TAB PO SCH (14:19)
[2017-05-12] MEDS: GABAPENTIN 100 MG (NEURONTIN) CAP PO SCH ×2 (14:47→21:13)
[2017-05-12] MEDS: MECLIZINE 25 MG (ANTIVERT) TAB PO SCH ×2 (14:47→21:12)
[2017-05-12 15:35] VITALS: BP 125/79
[2017-05-12 19:50] VITALS: BP 142/72
[2017-05-12] MEDS ORDERED: lisINopril 20 MG (ZESTRIL) TAB PO SCH (21:00)
[2017-05-12] MEDS: MELOXICAM 7.5 MG (MOBIC) TABLET PO SCH (21:11)
--- NOTE | 2017-05-12 22:07 | OPERATIVE REPORT ---
DATE OF SERVICE: 05/12/2017 PREOPERATIVE DIAGNOSIS: Mixed urinary incontinence with overactive bladder and intrinsic sphincter deficiency. POSTOPERATIVE DIAGNOSIS: Mixed urinary incontinence with overactive bladder and intrinsic sphincter deficiency. OPERATION PERFORMED: Tubovaginal sling and cystoscopy. SURGEON: Sheldon Mccann MD ANESTHESIA: General. COMPLICATIONS: None. PROCEDURE: Under satisfactory general anesthesia, the patient in extended lithotomy position, genitalia were prepped and draped in the usual sterile fashion using a separate vaginal prep. Maldonado catheter was inserted draining the bladder clear urine and connected to dependent drainage. The anterior vaginal mucosa which was found to be thin in areas and showing rugosities in other areas which throughout the surgery made dissection and closure tougher and as well as the vagina being a kind of more stenotic than normal. The vaginal mucosa was dissected free from the underlying tissue. The pubovaginal sling was passed on both sides using the Solix device using the described technique. However, the right side did not look well and it was removed as well as the whole sling and I passed a new sling which ended up sitting nicely under the mid urethra with no tension, no twist and passage of a curved hemostat easily between it and the underlying urethra. The catheter was removed and cystoscopy confirmed the integrity of the bladder, ureteral orifices, and urethra, there was no foreign body over there and presence of the sling under the mid urethra. Bladder was left half full and there was very mild oozing of fluid which was expected because of the size of the patient. The catheter was replaced draining clear urine. Closure was performed using interrupted 2-0 Vicryls because of the above described finding but complete closure was performed successfully and no area of denuded vagina, good closure was seen. A vaginal Estrace pack was inserted. Estimated blood loss less than 50 cc, none of which replaced. [place], sponge, and instruments counts correct x2. The patient tolerated the procedure and anesthesia well and was sent to recovery room in stable condition. Job ID: [id number] DocumentID: [id number] Dictated Date: 05/12/2017 08:46:06 Technical Sales Advisor Date: 05/12/2017 21:16:43 Dictated By: SHELDON MCCANN MD
[2017-05-13 00:23] VITALS: BP 143/64
[2017-05-13] MEDS: LACTATED RINGERS 1,000 ML IV SCH ×2 (00:41→07:39)
[2017-05-13 04:20] VITALS: BP 120/58
[2017-05-13] MEDS ORDERED: MULTIVIT W/MINERALS TAB (THERAGRAN M) PO SCH (07:00)
[2017-05-13] MEDS: VITAMIN D3 1,000 UNITS (CHOLECALCIFEROL) TABLET PO SCH (07:40)
[2017-05-13] MEDS: LORATADINE (CLARITIN) 10 MG TAB PO SCH (07:40)
[2017-05-13] MEDS: ASCORBIC ACID (VIT C) 500 MG TABLET PO SCH (07:40)
[2017-05-13] MEDS: CALCIUM CARBONATE 600 MG (CALCARB) TAB PO SCH (07:40)
[2017-05-13] MEDS: GABAPENTIN 100 MG (NEURONTIN) CAP PO SCH (07:42)
[2017-05-13] MEDS: MECLIZINE 25 MG (ANTIVERT) TAB PO SCH (07:42)
[2017-05-13] MEDS: MELOXICAM 7.5 MG (MOBIC) TABLET PO SCH (07:43)
[2017-05-13] MEDS: ALLOPURINOL 300 MG (ZYLOPRIM) TAB PO SCH (07:45)
[2017-05-13 08:00] VITALS: BP 132/89
[2017-05-13] MEDS ORDERED: LEVOFLOXACIN 250 MG/50 ML IVPB 50 ML IV SCH (08:36)
[2017-05-13] MEDS ORDERED: LANSOPRAZOLE 30 MG CAPSULE PO SCH (09:00)
[2017-05-13 09:04] VITALS: BP 132/89
--- NOTE | 2017-05-13 10:42 | Discharge Inst-Urology ---
Discharge Inst-Urology Discharge Medications New, Converted, or Re-newed RX: Call to Patient Pharmacy Patient Instructions/Follow Up Plan Please make appointment to been seen in office in 2 weeks. Rest till then Showers, no bath, keep bowels soft and moving stay off Myrbetriq Increase oral fluids for 48 hours and then as needed. Diet and Activity as tolerated. If questions or concerns contact your physician Or seek help at emergency department. BARNEY MCCANN MD May 13, 2017 10:42 am
[2017-05-13] MEDS ORDERED: CIPR-225 PO (10:43)
--- OUTSIDE RECORDS SUMMARY | 2017-05-14 14:15 | XMS REPORT | Continuity of Care Document ---
Author Author [facility] Address Unknown Phone Unavailable Allergies Active Description Code Type Severity Reaction Onset Reported/Identified Relationship to Patient Clinical Status Yes acetaminophen [id number] Drug Allergy Unknown N/A 03/03/2016 Yes meperidine HCl [id number] Drug Allergy Unknown N/A 03/03/2016 Yes methadone [id number] Drug Allergy Unknown N/A 03/03/2016 Yes oxycodone HCl [id number] Drug Allergy Unknown N/A 03/03/2016 Yes TAPE TAPE Unknown N/A 03/03/2016 Yes cortisone [id number] Drug Allergy Unknown N/A 03/19/2017 Medications Problems Date Dx Coded Attending Type Code Diagnosis Diagnosed By 10/22/1352 MICK WELLS DO Ot S72.91XD UNSP FRACTURE OF RIGHT FEMUR, SUBS FOR C 10/22/1352 MICK WELLS DO Ot V99.XXXD UNSPECIFIED TRANSPORT ACCIDENT, SUBSEQUE 10/22/1352 MICK WELLS DO Ot Y99.8 OTHER EXTERNAL CAUSE STATUS 09/07/2012 Ot 289.3 LYMPHADENITIS NOS 09/07/2012 Ot 382.9 OTITIS MEDIA NOS 09/07/2012 Ot 785.6 ENLARGEMENT LYMPH NODES 12/22/2012 V74.1 TB SCREENING 12/22/2012 LEIGH MUÑIZ DO V74.1 TB SCREENING 05/02/2013 YOVANNY SAMS, JOSEPH Kwon Ot 562.10 DIVERTICULOSIS COLON (W/O MENT OF HEMORR 05/02/2013 YOVANNY SAMS, JOSEPH Kwon Ot V76.51 SCREEN MAL NEOP-COLON 11/28/2013 LORI HUI PA-C Ot V43.65 KNEE JOINT REPLACEMENT STATUS 11/28/2013 LORI HUI PA-C Ot V54.81 AFTERCARE FOLLOWING JOINT REPLACEMENT 11/28/2013 LORI HUI PA-C Ot V57.1 PHYSICAL THERAPY NEC 06/05/2015 YOVANNY SAMS, JOSEPH Kwon Ot V72.84 06/05/2015 SERGE SAMS, YINA R Ot 300.09 06/05/2015 SERGE SAMS, YINA R Ot 339.20 06/05/2015 SERGE SAMS, YINA R Ot 401.9 06/05/2015 SERGE SAMS, YINA R Ot 477.9 06/05/2015 SERGE SAMS, YINA R Ot 625.6 06/05/2015 SERGE SAMS, YINA R Ot 627.4 06/05/2015 SERGE SAMS, YINA R Ot 710.0 06/05/2015 SERGE SAMS, YINA R Ot 724.5 06/12/2015 WELLS DO, MICK W Ot V57.1 06/12/2015 WELLS DO, MICK W Ot V58.49 06/26/2015 WELLS DO, MICK W Ot V57.1 06/26/2015 WELLS DO, MICK W Ot V58.49 06/26/2015 WELLS DO, MICK W Ot V57.1 06/26/2015 WELLS DO, MICK W Ot V58.49 06/26/2015 WELLS DO, MICK W Ot V57.1 06/26/2015 WELLS DO, MICK W Ot V58.49 07/26/2015 WELLS DO, MICK W Ot V57.1 07/26/2015 WELLS DO, MICK W Ot V58.49 07/26/2015 WELLS DO, MICK W Ot V57.1 07/26/2015 WELLS DO, MICK W Ot V58.49 07/26/2015 WELLS DO, MICK W Ot V57.1 07/26/2015 WELLS DO, MICK W Ot V58.49 08/03/2015 WELLS DO, MICK W Ot V57.1 PHYSICAL THERAPY NEC 08/03/2015 WELLS DO, MICK W Ot V58.49 OTHER SPECIFIED AFTERCARE FOLLOWING SURG 02/19/2016 YOVANNY SAMS, JOSEPH Kwon Ot V72.84 02/19/2016 SERGE SAMS, YINA R Ot 300.09 02/19/2016 SERGE SAMS, YINA R Ot 339.20 02/19/2016 SERGE SAMS, YINA R Ot 401.9 02/19/2016 SERGE SAMS, YINA R Ot 477.9 02/19/2016 SERGE SAMS, YINA R Ot 625.6 02/19/2016 SERGE SAMS, YINA Yang Ot 627.4 02/19/2016 SERGE SAMS, YINA Yang Ot 710.0 02/19/2016 SERGE SAMS, YINA Yang Ot 724.5 02/20/2016 LILIA SAMS, VAMSHI Simon Ot I10 02/20/2016 VAMSHI RODRIGUES MD Ot I47.1 02/20/2016 VAMSHI RODRIGUES MD Ot R07.89 02/29/2016 VAMSHI RODRIGUES MD Ot I10 02/29/2016 VAMSHI RODRIGUES MD Ot I47.1 02/29/2016 VAMSHI RODRIGUES MD Ot R00.2 02/29/2016 VAMSHI RODRIGUES MD Ot R07.89 03/05/2016 VAMSHI RODRIGUES MD Ot I10 03/05/2016 VAMSHI RODRIGUES MD Ot I47.1 03/05/2016 VAMSHI RODRIGUES MD Ot R00.2 03/05/2016 VAMSHI RODRIGUES MD Ot R07.89 03/13/2016 VAMSHI RODRIGUES MD Ot I10 ESSENTIAL (PRIMARY) HYPERTENSION 03/13/2016 VAMSHI RODRIGUES MD Ot I47.1 SUPRAVENTRICULAR TACHYCARDIA 03/13/2016 VAMSHI RODRIGUES MD Ot R07.89 OTHER CHEST PAIN 03/14/2016 MICK WELLS DO Ot S72.91XD UNSP FRACTURE OF RIGHT FEMUR, SUBS FOR C 03/14/2016 MICK WELLS DO Ot V99.XXXD UNSPECIFIED TRANSPORT ACCIDENT, SUBSEQUE 03/14/2016 MICK WELLS DO Ot Y99.8 OTHER EXTERNAL CAUSE STATUS 03/19/2016 VAMSHI RODRIGUES MD Ot I10 ESSENTIAL (PRIMARY) HYPERTENSION 03/19/2016 VAMSHI RODRIGUES MD Ot I47.1 SUPRAVENTRICULAR TACHYCARDIA 03/19/2016 VAMSHI RODRIGUES MD Ot R00.2 PALPITATIONS 03/19/2016 VAMSHI RODRIGUES MD Ot R07.89 OTHER CHEST PAIN 03/19/2016 VAMSHI RODRIGUES MD Ot E66.01 MORBID (SEVERE) OBESITY DUE TO EXCESS CA 03/19/2016 VAMSHI RODRIGUES MD Ot E78.5 HYPERLIPIDEMIA, UNSPECIFIED 03/19/2016 VAMSHI RODRIGUES MD Ot I10 ESSENTIAL (PRIMARY) HYPERTENSION 03/19/2016 VAMSHI RODRIGUES MD Ot I25.10 ATHSCL HEART DISEASE OF [place] CORONARY 03/19/2016 VAMSHI RODRIGUES MD Ot I47.1 SUPRAVENTRICULAR TACHYCARDIA 03/19/2016 VAMSHI RODRIGUES MD Ot M79.7 FIBROMYALGIA 03/19/2016 VAMSHI RODRIGUES MD Ot R07.9 CHEST PAIN, UNSPECIFIED 03/19/2016 VAMSHI RODRIGUES MD Ot R94.39 ABNORMAL RESULT OF OTHER CARDIOVASCULAR 03/19/2016 VAMSHI RODRIGUES MD Ot Z68.42 BODY MASS INDEX (BMI) 45.0-49.9, ADULT 03/19/2016 VAMSHI RODRIGUES MD Ot 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 03/19/2016 VAMSHI RODRIGUES MD Ot Z98.84 BARIATRIC SURGERY STATUS 03/26/2016 VAMSHI RODRIGUES MD Ot I10 ESSENTIAL (PRIMARY) HYPERTENSION 03/26/2016 VAMSHI RODRIGUES MD Ot I47.1 SUPRAVENTRICULAR TACHYCARDIA 03/26/2016 VAMSHI RODRIGUES MD Ot R07.89 OTHER CHEST PAIN 03/28/2016 VAMSHI RODRIGUES MD Ot E66.01 MORBID (SEVERE) OBESITY DUE TO EXCESS CA 03/28/2016 VAMSHI RODRIGUES MD Ot E78.5 HYPERLIPIDEMIA, UNSPECIFIED 03/28/2016 VAMSHI RODRIGUES MD Ot I10 ESSENTIAL (PRIMARY) HYPERTENSION 03/28/2016 VAMSHI RODRIGUES MD Ot I25.10 ATHSCL HEART DISEASE OF [place] CORONARY 03/28/2016 VAMSHI RODRIGUES MD Ot I47.1 SUPRAVENTRICULAR TACHYCARDIA 03/28/2016 VAMSHI RODRIGUES MD Ot M79.7 FIBROMYALGIA 03/28/2016 VAMSHI RODRIGUES MD Ot R07.9 CHEST PAIN, UNSPECIFIED 03/28/2016 VAMSHI RODRIGUES MD Ot R94.39 ABNORMAL RESULT OF OTHER CARDIOVASCULAR 03/28/2016 VAMSHI RODRIGUES MD Ot Z68.42 BODY MASS INDEX (BMI) 45.0-49.9, ADULT 03/28/2016 VAMSHI RODRIGUES MD Ot Z79.899 OTHER SHELTER (CURRENT) DRUG THERAPY 03/28/2016 VAMSHI RODRIGUES MD Ot Z98.84 BARIATRIC SURGERY STATUS 03/28/2016 VAMSHI RODRIGUES MD Ot I10 ESSENTIAL (PRIMARY) HYPERTENSION 03/28/2016 VAMSHI RODRIGUES MD Ot I47.1 SUPRAVENTRICULAR TACHYCARDIA 03/28/2016 VAMSHI RODRIGUES MD Ot R00.2 PALPITATIONS 03/28/2016 VAMSHI RODRIGUES MD Ot R07.89 OTHER CHEST PAIN 03/28/2016 VAMSHI RODRIGUES MD Ot I10 ESSENTIAL (PRIMARY) HYPERTENSION 03/28/2016 VAMSHI RODRIGUES MD Ot I47.1 SUPRAVENTRICULAR TACHYCARDIA 03/28/2016 VAMSHI RODRIGUES MD Ot R07.89 OTHER CHEST PAIN 03/31/2016 WELLS DO, MICK W Ot S72.91XD UNSP FRACTURE OF RIGHT FEMUR, SUBS FOR C 03/31/2016 WELLS DO, MICK W Ot V99.XXXD UNSPECIFIED TRANSPORT ACCIDENT, SUBSEQUE 03/31/2016 WELLS DO, MICK W Ot Y99.8 OTHER EXTERNAL CAUSE STATUS 04/08/2016 VAMSHI RODRIGUES MD Ot I10 ESSENTIAL (PRIMARY) HYPERTENSION 04/08/2016 VAMSHI RODRIGUES MD Ot I47.1 SUPRAVENTRICULAR TACHYCARDIA 04/08/2016 VAMSHI RODRIGUES MD Ot R07.89 OTHER CHEST PAIN 04/17/2016 WELLS DO, MICK W Ot S72.91XD UNSP FRACTURE OF RIGHT FEMUR, SUBS FOR C 04/17/2016 WELLS DO, MICK W Ot V99.XXXD UNSPECIFIED TRANSPORT ACCIDENT, SUBSEQUE 04/17/2016 WELLS DO, MICK W Ot Y99.8 OTHER EXTERNAL CAUSE STATUS 04/23/2016 WELLS DO, MICK W Ot S72.91XD UNSP FRACTURE OF RIGHT FEMUR, SUBS FOR C 04/23/2016 WELLS DO, MICK W Ot V99.XXXD UNSPECIFIED TRANSPORT ACCIDENT, SUBSEQUE 04/23/2016 WELLS DO, MICK W Ot Y99.8 OTHER EXTERNAL CAUSE STATUS 06/19/2016 SARIAH HIDALGO Ot E78.2 MIXED HYPERLIPIDEMIA 06/19/2016 SARIAH HIDALGO Ot I10 ESSENTIAL (PRIMARY) HYPERTENSION 07/09/2016 SARIAH HIDALGO Ot E78.2 MIXED HYPERLIPIDEMIA 07/09/2016 SARIAH HIDALGO Ot I10 ESSENTIAL (PRIMARY) HYPERTENSION 07/18/2016 YOVANNY SAMS, JOSEPH Kwon Ot V72.84 EXAM PRE-OPERATIVE NOS 07/18/2016 YINA VALENTINE MD Ot 300.09 ANXIETY STATE NEC 07/18/2016 YINA VALENTINE MD Ot 339.20 POST-TRAUMATIC HEADACHE, UNSPECIFIED 07/18/2016 YINA VALENTINE MD Ot 401.9 HYPERTENSION NOS 07/18/2016 YINA VALENTINE MD Ot 477.9 ALLERGIC RHINITIS NOS 07/18/2016 YINA VALENTINE MD Ot 625.6 FEM STRESS INCONTINENCE 07/18/2016 YINA VALENTINE MD Ot 627.4 SYMPT STATES ASSOC W ARTIFIC MENOPAUSE 07/18/2016 YINA VALENTINE MD Ot 710.0 SYST LUPUS ERYTHEMATOSIS 07/18/2016 YINA VALENTINE MD Ot 724.5 BACKACHE NOS 07/18/2016 VAMSHI RODRIGUES MD Ot I10 ESSENTIAL (PRIMARY) HYPERTENSION 07/18/2016 VAMSHI RODRIGUES MD Ot I47.1 SUPRAVENTRICULAR TACHYCARDIA 07/18/2016 VAMSHI RODRIGUES MD Ot R00.2 PALPITATIONS 07/18/2016 VAMSHI RODRIGUES MD Ot R07.89 OTHER CHEST PAIN 07/18/2016 VAMSHI RODRIGUES MD Ot I10 ESSENTIAL (PRIMARY) HYPERTENSION 07/18/2016 VAMSHI RODRIGUES MD Ot I47.1 SUPRAVENTRICULAR TACHYCARDIA 07/18/2016 VAMSHI RODRIGUES MD Ot R07.89 OTHER CHEST PAIN 07/18/2016 VAMSHI RODRIGUES MD Ot I10 ESSENTIAL (PRIMARY) HYPERTENSION 07/18/2016 VAMSHI RODRIGUES MD Ot I47.1 SUPRAVENTRICULAR TACHYCARDIA 07/18/2016 VAMSHI RODRIGUES MD Ot R07.89 OTHER CHEST PAIN 07/18/2016 SARIAH HIDALGO Ot E78.2 MIXED HYPERLIPIDEMIA 07/18/2016 SARIAH HIDALGO Ot I10 ESSENTIAL (PRIMARY) HYPERTENSION 07/18/2016 TRESSA REYNOSO APRN Ot R21 RASH AND OTHER NONSPECIFIC SKIN ERUPTION 07/21/2016 TRESSA REYNOSO APRN Ot R21 RASH AND OTHER NONSPECIFIC SKIN ERUPTION 07/21/2016 SARIAH HIDALGO Ot E78.2 MIXED HYPERLIPIDEMIA 07/21/2016 SARIAH HIDALGO Ot I10 ESSENTIAL (PRIMARY) HYPERTENSION 10/14/2016 YOVANNY SAMS, JOSEPH Kwon Ot V72.84 EXAM PRE-OPERATIVE NOS 10/14/2016 YINA VALENTINE MD Ot 300.09 ANXIETY STATE NEC 10/14/2016 YINA VALENTINE MD Ot 339.20 POST-TRAUMATIC HEADACHE, UNSPECIFIED 10/14/2016 YINA VALENTINE MD Ot 401.9 HYPERTENSION NOS 10/14/2016 YINA VALENTINE MD Ot 477.9 ALLERGIC RHINITIS NOS 10/14/2016 YINA VALENTINE MD Ot 625.6 FEM STRESS INCONTINENCE 10/14/2016 YINA VALENTINE MD Ot 627.4 SYMPT STATES ASSOC W ARTIFIC MENOPAUSE 10/14/2016 YINA VALENTINE MD Ot 710.0 SYST LUPUS ERYTHEMATOSIS 10/14/2016 YINA VALENTINE MD Ot 724.5 BACKACHE NOS 10/14/2016 VAMSHI RODRIGUES MD Ot I10 ESSENTIAL (PRIMARY) HYPERTENSION 10/14/2016 VAMSHI RODRIGUES MD Ot I47.1 SUPRAVENTRICULAR TACHYCARDIA 10/14/2016 VAMSHI RODRIGUES MD Ot R00.2 PALPITATIONS 10/14/2016 VAMSHI RODRIGUES MD Ot R07.89 OTHER CHEST PAIN 10/14/2016 VAMSHI RODRIGUES MD Ot I10 ESSENTIAL (PRIMARY) HYPERTENSION 10/14/2016 VAMSHI RODRIGUES MD Ot I47.1 SUPRAVENTRICULAR TACHYCARDIA 10/14/2016 VAMSHI RODRIGUES MD Ot R07.89 OTHER CHEST PAIN 10/14/2016 VAMSHI RODRIGUES MD Ot I10 ESSENTIAL (PRIMARY) HYPERTENSION 10/14/2016 VAMSHI RODRIGUES MD Ot I47.1 SUPRAVENTRICULAR TACHYCARDIA 10/14/2016 VAMSHI RODRIGUES MD Ot R07.89 OTHER CHEST PAIN 10/14/2016 SARIAH HIDALGO Ot E78.2 MIXED HYPERLIPIDEMIA 10/14/2016 SARIAH HIDALGO Ot I10 ESSENTIAL (PRIMARY) HYPERTENSION 10/14/2016 SARIAH HIDALGO Ot E78.2 MIXED HYPERLIPIDEMIA 11/05/2016 SARIAH HIDALGO Ot E78.2 MIXED HYPERLIPIDEMIA 11/06/2016 YOVANNY SAMS, JOSEPH Kwon Ot V72.84 EXAM PRE-OPERATIVE NOS 11/06/2016 YINA VALENTINE MD Ot 300.09 ANXIETY STATE NEC 11/06/2016 YIAN VALENTINE MD Ot 339.20 POST-TRAUMATIC HEADACHE, UNSPECIFIED 11/06/2016 YINA VALENTINE MD Ot 401.9 HYPERTENSION NOS 11/06/2016 YINA VALENTINE MD Ot 477.9 ALLERGIC RHINITIS NOS 11/06/2016 YNIA VALENTINE MD Ot 625.6 FEM STRESS INCONTINENCE 11/06/2016 YINA VALENTINE MD Ot 627.4 SYMPT STATES ASSOC W ARTIFIC MENOPAUSE 11/06/2016 YINA VALENTINE MD Ot 710.0 SYST LUPUS ERYTHEMATOSIS 11/06/2016 YINA VALENTINE MD Ot 724.5 BACKACHE NOS 11/06/2016 VAMSHI RODRIGUES MD Ot I10 ESSENTIAL (PRIMARY) HYPERTENSION 11/06/2016 VAMSHI RODRIGUES MD Ot I47.1 SUPRAVENTRICULAR TACHYCARDIA 11/06/2016 VAMSHI RODRIGUES MD Ot R00.2 PALPITATIONS 11/06/2016 VAMSHI RODRIGUES MD Ot R07.89 OTHER CHEST PAIN 11/06/2016 VAMSHI RODRIGUES MD Ot I10 ESSENTIAL (PRIMARY) HYPERTENSION 11/06/2016 VAMSHI RODRIGUES MD Ot I47.1 SUPRAVENTRICULAR TACHYCARDIA 11/06/2016 VAMSHI RODRIGUES MD Ot R07.89 OTHER CHEST PAIN 11/06/2016 VAMSHI RODRIGUES MD Ot I10 ESSENTIAL (PRIMARY) HYPERTENSION 11/06/2016 VAMSHI RODRIGUES MD Ot I47.1 SUPRAVENTRICULAR TACHYCARDIA 11/06/2016 VAMSHI RODRIGUES MD Ot R07.89 OTHER CHEST PAIN 11/06/2016 SARIAH HIDALGO Ot E78.2 MIXED HYPERLIPIDEMIA 11/06/2016 SARIAH HIDALGO Ot I10 ESSENTIAL (PRIMARY) HYPERTENSION 11/06/2016 SARIAH HIDALGO Ot E78.2 MIXED HYPERLIPIDEMIA 11/06/2016 VAMSHI RODRIGUES MD Ot R07.89 OTHER CHEST PAIN 11/06/2016 VAMSHI RODRIGUES MD Ot R07.89 OTHER CHEST PAIN 11/07/2016 VAMSHI RODRIGUES MD Ot R07.89 OTHER CHEST PAIN 11/12/2016 VAMSHI RODRIGUES MD Ot I10 ESSENTIAL (PRIMARY) HYPERTENSION 11/12/2016 VAMSHI RODRIGUES MD Ot I47.1 SUPRAVENTRICULAR TACHYCARDIA 11/12/2016 VAMSHI RODRIGUES MD Ot R00.2 PALPITATIONS 11/12/2016 VAMSHI RODRIGUES MD Ot R07.89 OTHER CHEST PAIN 11/13/2016 VAMSHI RODRIGUES MD Ot G47.33 OBSTRUCTIVE SLEEP APNEA (ADULT) (PEDIATR 11/13/2016 VAMSHI RODRIGUES MD Ot G47.33 OBSTRUCTIVE SLEEP APNEA (ADULT) (PEDIATR 11/14/2016 LACEY DIAZ, SARIAH Zacarias Ot E78.2 MIXED HYPERLIPIDEMIA 11/16/2016 FAVIAN BOSWELL MD, Ot I10 ESSENTIAL (PRIMARY) HYPERTENSION 11/16/2016 FAVIAN BOSWELL MD Ot M19.072 PRIMARY OSTEOARTHRITIS, LEFT ANKLE AND F 11/16/2016 FAVIAN BOSWELL MD Ot M79.672 PAIN IN LEFT FOOT 11/16/2016 FAVIAN BOSWELL MD Ot 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 11/16/2016 YOVANNY SAMS, JOSEPH Kwon Ot V72.84 EXAM PRE-OPERATIVE NOS 11/16/2016 YINA VALENTINE MD Ot 300.09 ANXIETY STATE NEC 11/16/2016 YINA VALENTINE MD Ot 339.20 POST-TRAUMATIC HEADACHE, UNSPECIFIED 11/16/2016 YINA VALENTINE MD Ot 401.9 HYPERTENSION NOS 11/16/2016 YINA VALENTINE MD Ot 477.9 ALLERGIC RHINITIS NOS 11/16/2016 YINA VALENTINE MD Ot 625.6 FEM STRESS INCONTINENCE 11/16/2016 YINA VALENTINE MD Ot 627.4 SYMPT STATES ASSOC W ARTIFIC MENOPAUSE 11/16/2016 YINA VALENTINE MD Ot 710.0 SYST LUPUS ERYTHEMATOSIS 11/16/2016 YINA VALENTINE MD Ot 724.5 BACKACHE NOS 11/16/2016 VAMSHI RODRIGUES MD Ot I10 ESSENTIAL (PRIMARY) HYPERTENSION 11/16/2016 VAMSHI RODRIGUES MD Ot I47.1 SUPRAVENTRICULAR TACHYCARDIA 11/16/2016 VAMSHI RODRIGUES MD Ot R00.2 PALPITATIONS 11/16/2016 VAMSHI RODRIGUES MD Ot R07.89 OTHER CHEST PAIN 11/16/2016 VAMSHI RODRIGUES MD Ot I10 ESSENTIAL (PRIMARY) HYPERTENSION 11/16/2016 VAMSHI RODRIGUES MD Ot I47.1 SUPRAVENTRICULAR TACHYCARDIA 11/16/2016 VAMSHI RODRIGUES MD Ot R07.89 OTHER CHEST PAIN 11/16/2016 VAMSHI RODRIGUES MD Ot I10 ESSENTIAL (PRIMARY) HYPERTENSION 11/16/2016 VAMSHI RODRIGUES MD Ot I47.1 SUPRAVENTRICULAR TACHYCARDIA 11/16/2016 VAMSHI RODRIGUES MD Ot R07.89 OTHER CHEST PAIN 11/16/2016 SARIAH HIDALGO Ot E78.2 MIXED HYPERLIPIDEMIA 11/16/2016 SARIAH HIDALGO Ot I10 ESSENTIAL (PRIMARY) HYPERTENSION 11/16/2016 SARIAH HIDALGO Ot E78.2 MIXED HYPERLIPIDEMIA 11/16/2016 VAMSHI RODRIGUES MD Ot I10 ESSENTIAL (PRIMARY) HYPERTENSION 11/16/2016 VAMSHI RODRIGUES MD Ot I47.1 SUPRAVENTRICULAR TACHYCARDIA 11/16/2016 VAMSHI RODRIGUES MD Ot R00.2 PALPITATIONS 11/16/2016 VAMSHI RODRIGUES MD Ot R07.89 OTHER CHEST PAIN 11/17/2016 YOVANNY SAMS, JOSEPH Kwon Ot V72.84 EXAM PRE-OPERATIVE NOS 11/17/2016 YINA VALENTINE MD Ot 300.09 ANXIETY STATE NEC 11/17/2016 YINA VALENTINE MD Ot 339.20 POST-TRAUMATIC HEADACHE, UNSPECIFIED 11/17/2016 YINA VALENTINE MD Ot 401.9 HYPERTENSION NOS 11/17/2016 YINA VALENTINE MD Ot 477.9 ALLERGIC RHINITIS NOS 11/17/2016 YINA VALENTINE MD Ot 625.6 FEM STRESS INCONTINENCE 11/17/2016 YINA VALENTINE MD Ot 627.4 SYMPT STATES ASSOC W ARTIFIC MENOPAUSE 11/17/2016 YINA VALENTINE MD Ot 710.0 SYST LUPUS ERYTHEMATOSIS 11/17/2016 YINA VALENTINE MD Ot 724.5 BACKACHE NOS 11/17/2016 LILIA MD, BASHAR J Ot I10 ESSENTIAL (PRIMARY) HYPERTENSION 11/17/2016 LILIA SAMS, VAMSHI Simon Ot I47.1 SUPRAVENTRICULAR TACHYCARDIA 11/17/2016 VAMSHI RODRIGUES MD Ot R00.2 PALPITATIONS 11/17/2016 VAMSHI RODRIGUES MD Ot R07.89 OTHER CHEST PAIN 11/17/2016 VAMSHI RODRIGUES MD Ot I10 ESSENTIAL (PRIMARY) HYPERTENSION 11/17/2016 VAMSHI RODRIGUES MD Ot I47.1 SUPRAVENTRICULAR TACHYCARDIA 11/17/2016 VAMSHI RODRIGUES MD Ot R07.89 OTHER CHEST PAIN 11/17/2016 VAMSHI RODRIGUES MD Ot I10 ESSENTIAL (PRIMARY) HYPERTENSION 11/17/2016 VAMSHI RODRIGUES MD Ot I47.1 SUPRAVENTRICULAR TACHYCARDIA 11/17/2016 VAMSHI RODRIGUES MD Ot R07.89 OTHER CHEST PAIN 11/17/2016 SARIAH HIDALGO Ot E78.2 MIXED HYPERLIPIDEMIA 11/17/2016 SARIAH HIDALGO Ot I10 ESSENTIAL (PRIMARY) HYPERTENSION 11/17/2016 SARIAH HIDALGO Ot E78.2 MIXED HYPERLIPIDEMIA 11/17/2016 VAMSHI RODRIGUES MD Ot I10 ESSENTIAL (PRIMARY) HYPERTENSION 11/17/2016 VAMSHI RODRIGUES MD Ot I47.1 SUPRAVENTRICULAR TACHYCARDIA 11/17/2016 VAMSHI RODRIGUES MD Ot R00.2 PALPITATIONS 11/17/2016 VAMSHI RODRIGUES MD Ot R07.89 OTHER CHEST PAIN 11/18/2016 FAVIAN BOSWELL MD Ot I10 ESSENTIAL (PRIMARY) HYPERTENSION 11/18/2016 FAVIAN BOSWELL MD Ot M19.072 PRIMARY OSTEOARTHRITIS, LEFT ANKLE AND F 11/18/2016 FAVIAN BOSWELL MD Ot M79.672 PAIN IN LEFT FOOT 11/18/2016 FAVIAN BOSWELL MD Ot Z79.899 OTHER SHELTER (CURRENT) DRUG THERAPY 11/21/2016 YOVANNY SAMS, JOSEPH Kwon Ot V72.84 EXAM PRE-OPERATIVE NOS 11/21/2016 YINA VALENTINE MD Ot 300.09 ANXIETY STATE NEC 11/21/2016 YINA VALENTINE MD Ot 339.20 POST-TRAUMATIC HEADACHE, UNSPECIFIED 11/21/2016 YINA VALENTINE MD Ot 401.9 HYPERTENSION NOS 11/21/2016 YINA VALENTINE MD Ot 477.9 ALLERGIC RHINITIS NOS 11/21/2016 YINA VALENTINE MD Ot 625.6 FEM STRESS INCONTINENCE 11/21/2016 YINA VALENTINE MD Ot 627.4 SYMPT STATES ASSOC W ARTIFIC MENOPAUSE 11/21/2016 YINA VALENTINE MD Ot 710.0 SYST LUPUS ERYTHEMATOSIS 11/21/2016 YINA VALENTINE MD Ot 724.5 BACKACHE NOS 11/21/2016 VAMSHI RODRIGUES MD Ot I10 ESSENTIAL (PRIMARY) HYPERTENSION 11/21/2016 VAMSHI RODRIGUES MD Ot I47.1 SUPRAVENTRICULAR TACHYCARDIA 11/21/2016 VAMSHI RODRIGUES MD Ot R00.2 PALPITATIONS 11/21/2016 VAMSHI RODRIGUES MD Ot R07.89 OTHER CHEST PAIN 11/21/2016 VAMSHI RODRIGUES MD Ot I10 ESSENTIAL (PRIMARY) HYPERTENSION 11/21/2016 VAMSHI RODRIGUES MD Ot I47.1 SUPRAVENTRICULAR TACHYCARDIA 11/21/2016 VAMSHI RODRIGUES MD Ot R07.89 OTHER CHEST PAIN 11/21/2016 VAMSHI RODRIGUES MD Ot I10 ESSENTIAL (PRIMARY) HYPERTENSION 11/21/2016 VAMSHI RODRIGUES MD Ot I47.1 SUPRAVENTRICULAR TACHYCARDIA 11/21/2016 VAMSHI RODRIGUES MD Ot R07.89 OTHER CHEST PAIN 11/21/2016 SARIAH HIDALGO Ot E78.2 MIXED HYPERLIPIDEMIA 11/21/2016 SARIAH HIDALGO Ot I10 ESSENTIAL (PRIMARY) HYPERTENSION 11/21/2016 SARIAH HIDALGO Ot E78.2 MIXED HYPERLIPIDEMIA 11/21/2016 VAMSHI RODRIGUES MD Ot I10 ESSENTIAL (PRIMARY) HYPERTENSION 11/21/2016 VAMSHI RODRIGUES MD Ot I47.1 SUPRAVENTRICULAR TACHYCARDIA 11/21/2016 VAMSHI RODRIGUES MD Ot R00.2 PALPITATIONS 11/21/2016 VAMSHI RODRIGUES MD Ot R07.89 OTHER CHEST PAIN 11/21/2016 YOVANNY SAMS, JOSEPH Kwon Ot V72.84 EXAM PRE-OPERATIVE NOS 11/21/2016 YINA VALENTINE MD Ot 300.09 ANXIETY STATE NEC 11/21/2016 YINA VALENTINE MD Ot 339.20 POST-TRAUMATIC HEADACHE, UNSPECIFIED 11/21/2016 YINA VALENTINE MD Ot 401.9 HYPERTENSION NOS 11/21/2016 YINA VALENTINE MD Ot 477.9 ALLERGIC RHINITIS NOS 11/21/2016 YINA VALENTINE MD Ot 625.6 FEM STRESS INCONTINENCE 11/21/2016 YINA VALENTINE MD Ot 627.4 SYMPT STATES ASSOC W ARTIFIC MENOPAUSE 11/21/2016 YINA VALENTINE MD Ot 710.0 SYST LUPUS ERYTHEMATOSIS 11/21/2016 YINA VALENTINE MD Ot 724.5 BACKACHE NOS 11/21/2016 VAMSHI RODRIGUES MD Ot I10 ESSENTIAL (PRIMARY) HYPERTENSION 11/21/2016 VAMSHI RODRIGUES MD Ot I47.1 SUPRAVENTRICULAR TACHYCARDIA 11/21/2016 VAMSHI RODRIGUES MD Ot R00.2 PALPITATIONS 11/21/2016 VAMSHI RODRIGUES MD Ot R07.89 OTHER CHEST PAIN 11/21/2016 VAMSHI RODRIGUES MD Ot I10 ESSENTIAL (PRIMARY) HYPERTENSION 11/21/2016 VAMSHI RODRIGUES MD Ot I47.1 SUPRAVENTRICULAR TACHYCARDIA 11/21/2016 VAMSHI RODRIGUES MD Ot R07.89 OTHER CHEST PAIN 11/21/2016 VAMSHI RODRIGUES MD Ot I10 ESSENTIAL (PRIMARY) HYPERTENSION 11/21/2016 VAMSHI RODRIGUES MD Ot I47.1 SUPRAVENTRICULAR TACHYCARDIA 11/21/2016 VAMSHI RODRIGUES MD Ot R07.89 OTHER CHEST PAIN 11/21/2016 SARIAH HIDALGO Ot E78.2 MIXED HYPERLIPIDEMIA 11/21/2016 SARIAH HIDALGO Ot I10 ESSENTIAL (PRIMARY) HYPERTENSION 11/21/2016 SARIAH HIDALGO Ot E78.2 MIXED HYPERLIPIDEMIA 11/21/2016 VAMSHI RODRIGUES MD Ot I10 ESSENTIAL (PRIMARY) HYPERTENSION 11/21/2016 VAMSHI RODRIGUES MD Ot I47.1 SUPRAVENTRICULAR TACHYCARDIA 11/21/2016 VAMSHI RODRIGUES MD Ot R00.2 PALPITATIONS 11/21/2016 VAMSHI RODRIGUES MD Ot R07.89 OTHER CHEST PAIN 12/02/2016 VAMSHI RODRIGUES MD Ot I10 ESSENTIAL (PRIMARY) HYPERTENSION 12/02/2016 VAMSHI RODRIGUES MD Ot I47.1 SUPRAVENTRICULAR TACHYCARDIA 12/02/2016 VAMSHI RODRIGUES MD Ot R00.2 PALPITATIONS 12/02/2016 VAMSHI RODRIGUES MD Ot R07.89 OTHER CHEST PAIN 12/03/2016 YOVANNY SAMS, JOSEPH Kwon Ot V72.84 EXAM PRE-OPERATIVE NOS 12/03/2016 SERGE SAMS, YINA Yang Ot 300.09 ANXIETY STATE NEC 12/03/2016 SERGE SAMS, YINA Yang Ot 339.20 POST-TRAUMATIC HEADACHE, UNSPECIFIED 12/03/2016 YINA VALENTINE MD Ot 401.9 HYPERTENSION NOS 12/03/2016 YINA VALENTINE MD Ot 477.9 ALLERGIC RHINITIS NOS 12/03/2016 YINA VALENTINE MD Ot 625.6 FEM STRESS INCONTINENCE 12/03/2016 YINA VALENTINE MD Ot 627.4 SYMPT STATES ASSOC W ARTIFIC MENOPAUSE 12/03/2016 YINA VALENTINE MD Ot 710.0 SYST LUPUS ERYTHEMATOSIS 12/03/2016 YINA VALENTINE MD Ot 724.5 BACKACHE NOS 12/03/2016 VAMSHI RODRIGUES MD Ot I10 ESSENTIAL (PRIMARY) HYPERTENSION 12/03/2016 VAMSHI RODRIGUES MD Ot I47.1 SUPRAVENTRICULAR TACHYCARDIA 12/03/2016 VAMSHI RODRIGUES MD Ot R00.2 PALPITATIONS 12/03/2016 VAMSHI RODRIGUES MD Ot R07.89 OTHER CHEST PAIN 12/03/2016 VAMSHI RODRIGUES MD Ot I10 ESSENTIAL (PRIMARY) HYPERTENSION 12/03/2016 VAMSHI RODRIGUES MD Ot I47.1 SUPRAVENTRICULAR TACHYCARDIA 12/03/2016 VAMSHI RODRIGUES MD Ot R07.89 OTHER CHEST PAIN 12/03/2016 VAMSHI RODRIGUES MD Ot I10 ESSENTIAL (PRIMARY) HYPERTENSION 12/03/2016 VAMSHI RODRIGUES MD Ot I47.1 SUPRAVENTRICULAR TACHYCARDIA 12/03/2016 VAMSHI RODRIGUES MD Ot R07.89 OTHER CHEST PAIN 12/03/2016 SARIAH HIDALGO Ot E78.2 MIXED HYPERLIPIDEMIA 12/03/2016 SARIAH HIDALGO Ot I10 ESSENTIAL (PRIMARY) HYPERTENSION 12/03/2016 SARIAH HIDALGO Ot E78.2 MIXED HYPERLIPIDEMIA 12/03/2016 VAMSHI RODRIGUES MD Ot I10 ESSENTIAL (PRIMARY) HYPERTENSION 12/03/2016 VAMSHI RODRIGUES MD Ot I47.1 SUPRAVENTRICULAR TACHYCARDIA 12/03/2016 VAMSHI RODRIGUES MD Ot R00.2 PALPITATIONS 12/03/2016 VAMSHI RODRIGUES MD Ot R07.89 OTHER CHEST PAIN 12/10/2016 YOVANNY SAMS, JOSEPH Kwon Ot V72.84 EXAM PRE-OPERATIVE NOS 12/10/2016 YINA VALENTINE MD Ot 300.09 ANXIETY STATE NEC 12/10/2016 YINA VALENTINE MD Ot 339.20 POST-TRAUMATIC HEADACHE, UNSPECIFIED 12/10/2016 YINA VALENTINE MD Ot 401.9 HYPERTENSION NOS 12/10/2016 YINA VALENTINE MD Ot 477.9 ALLERGIC RHINITIS NOS 12/10/2016 YINA VALENTINE MD Ot 625.6 FEM STRESS INCONTINENCE 12/10/2016 YINA VALENTINE MD Ot 627.4 SYMPT STATES ASSOC W ARTIFIC MENOPAUSE 12/10/2016 YINA VALENTINE MD Ot 710.0 SYST LUPUS ERYTHEMATOSIS 12/10/2016 YINA VALENTINE MD Ot 724.5 BACKACHE NOS 12/10/2016 VAMSHI RODRIGUES MD Ot I10 ESSENTIAL (PRIMARY) HYPERTENSION 12/10/2016 VAMSHI RODRIGUES MD Ot I47.1 SUPRAVENTRICULAR TACHYCARDIA 12/10/2016 VAMSHI RODRIGUES MD Ot R00.2 PALPITATIONS 12/10/2016 VAMSHI RODRIGUES MD Ot R07.89 OTHER CHEST PAIN 12/10/2016 VAMSHI RODRIGUES MD Ot I10 ESSENTIAL (PRIMARY) HYPERTENSION 12/10/2016 VAMSHI RODRIGUES MD Ot I47.1 SUPRAVENTRICULAR TACHYCARDIA 12/10/2016 VAMSHI RODRIGUES MD Ot R07.89 OTHER CHEST PAIN 12/10/2016 VAMSHI RODRIGUES MD Ot I10 ESSENTIAL (PRIMARY) HYPERTENSION 12/10/2016 VAMSHI RODRIGUES MD Ot I47.1 SUPRAVENTRICULAR TACHYCARDIA 12/10/2016 VAMSHI RODRIGUES MD Ot R07.89 OTHER CHEST PAIN 12/10/2016 SARIAH HIDALGO Ot E78.2 MIXED HYPERLIPIDEMIA 12/10/2016 SARIAH HIDALGO Ot I10 ESSENTIAL (PRIMARY) HYPERTENSION 12/10/2016 SARIAH HIDALGO Ot E78.2 MIXED HYPERLIPIDEMIA 12/10/2016 VAMSHI RODRIGUES MD Ot I10 ESSENTIAL (PRIMARY) HYPERTENSION 12/10/2016 VAMSHI RODRIGUES MD Ot I47.1 SUPRAVENTRICULAR TACHYCARDIA 12/10/2016 VAMSHI RODRIGUES MD Ot R00.2 PALPITATIONS 12/10/2016 VAMSHI RODRIGUES MD Ot R07.89 OTHER CHEST PAIN 12/21/2016 YEE, MORGAN J ADJUSTER ARBITRATOR Ot G47.36 SLEEP RELATED HYPOVENTILATION IN CONDITI 12/21/2016 YEE, MORGAN J ADJUSTER ARBITRATOR Ot R06.83 SNORING 12/24/2016 YEE, MORGAN J ADJUSTER ARBITRATOR Ot G47.36 SLEEP RELATED HYPOVENTILATION IN CONDITI 12/24/2016 YEE, MORGAN J ADJUSTER ARBITRATOR Ot R06.83 SNORING 12/25/2016 VAMSHI RODRIGUES MD Ot I10 ESSENTIAL (PRIMARY) HYPERTENSION 12/25/2016 VAMSHI RODRIGUES MD Ot I47.1 SUPRAVENTRICULAR TACHYCARDIA 12/25/2016 VAMSHI RODRIGUES MD Ot R00.2 PALPITATIONS 12/25/2016 VAMSHI RODRIGUES MD Ot R07.89 OTHER CHEST PAIN 12/29/2016 YOVANNY SAMS, JOSEPH Kwon Ot V72.84 EXAM PRE-OPERATIVE NOS 12/29/2016 YINA VALENTINE MD Ot 300.09 ANXIETY STATE NEC 12/29/2016 YINA VALENTINE MD Ot 339.20 POST-TRAUMATIC HEADACHE, UNSPECIFIED 12/29/2016 YINA VALENTINE MD Ot 401.9 HYPERTENSION NOS 12/29/2016 YINA VALENTINE MD Ot 477.9 ALLERGIC RHINITIS NOS 12/29/2016 YINA VALENTINE MD Ot 625.6 FEM STRESS INCONTINENCE 12/29/2016 YINA VALENTINE MD Ot 627.4 SYMPT STATES ASSOC W ARTIFIC MENOPAUSE 12/29/2016 YINA VALENTINE MD Ot 710.0 SYST LUPUS ERYTHEMATOSIS 12/29/2016 YINA VALENTINE MD Ot 724.5 BACKACHE NOS 12/29/2016 VAMSHI RODRIGUES MD Ot I10 ESSENTIAL (PRIMARY) HYPERTENSION 12/29/2016 VAMSHI RODRIGUES MD Ot I47.1 SUPRAVENTRICULAR TACHYCARDIA 12/29/2016 VAMSHI RODRIGUES MD Ot R00.2 PALPITATIONS 12/29/2016 VAMSHI RODRIGUES MD Ot R07.89 OTHER CHEST PAIN 12/29/2016 VAMSHI RODRIGUES MD Ot I10 ESSENTIAL (PRIMARY) HYPERTENSION 12/29/2016 VAMSHI RODRIGUES MD Ot I47.1 SUPRAVENTRICULAR TACHYCARDIA 12/29/2016 VAMSHI RODRIGUES MD Ot R07.89 OTHER CHEST PAIN 12/29/2016 VAMSHI RODRIGUES MD Ot I10 ESSENTIAL (PRIMARY) HYPERTENSION 12/29/2016 VAMSHI RODRIGUES MD Ot I47.1 SUPRAVENTRICULAR TACHYCARDIA 12/29/2016 VAMSHI RODRIGUES MD Ot R07.89 OTHER CHEST PAIN 12/29/2016 SARIAH HIDALGO Ot E78.2 MIXED HYPERLIPIDEMIA 12/29/2016 SARIAH HIDALGO Ot I10 ESSENTIAL (PRIMARY) HYPERTENSION 12/29/2016 SARIAH HIDALGO Ot E78.2 MIXED HYPERLIPIDEMIA 12/29/2016 VAMSHI RODRIGUES MD Ot I10 ESSENTIAL (PRIMARY) HYPERTENSION 12/29/2016 VAMSHI RODRIGUES MD Ot I47.1 SUPRAVENTRICULAR TACHYCARDIA 12/29/2016 VAMSHI RODRIGUES MD Ot R00.2 PALPITATIONS 12/29/2016 VAMSHI RODRIGUES MD Ot R07.89 OTHER CHEST PAIN 01/08/2017 VAMSHI RODRIGUES MD Ot I10 ESSENTIAL (PRIMARY) HYPERTENSION 01/08/2017 VAMSHI RODRIGUES MD Ot I47.1 SUPRAVENTRICULAR TACHYCARDIA 01/08/2017 VAMSHI RODRIGUES MD Ot R00.2 PALPITATIONS 01/08/2017 VAMSHI RODRIGUES MD Ot R07.89 OTHER CHEST PAIN 01/14/2017 VAMSHI RODRIGUES MD Ot I10 ESSENTIAL (PRIMARY) HYPERTENSION 01/14/2017 VAMSHI RODRIGUES MD Ot I47.1 SUPRAVENTRICULAR TACHYCARDIA 01/14/2017 VAMSHI RODRIGUES MD J Ot R00.2 PALPITATIONS 01/14/2017 VAMSHI RODRIGUES MD Ot R07.89 OTHER CHEST PAIN 01/23/2017 LILIA SAMS, VAMSHI Simon Ot I10 ESSENTIAL (PRIMARY) HYPERTENSION 01/23/2017 LILIA SAMS, VAMSHI Simon Ot I47.1 SUPRAVENTRICULAR TACHYCARDIA 01/23/2017 LILIA SAMS, VAMSHI Simon Ot R00.2 PALPITATIONS 01/23/2017 VAMSHI RODRIGUES MD Ot R07.89 OTHER CHEST PAIN 03/04/2017 TRESSA REYNOSO APRN Ot G47.30 SLEEP APNEA, UNSPECIFIED 03/04/2017 TRESSA REYNOSO APRN Ot I10 ESSENTIAL (PRIMARY) HYPERTENSION 03/04/2017 TRESSA REYNOSO APRN Ot I51.7 CARDIOMEGALY 03/04/2017 TRESSA REYNOSO APRN Ot J18.9 PNEUMONIA, UNSPECIFIED ORGANISM 03/04/2017 TRESSA REYNOSO APRN Ot R06.00 DYSPNEA, UNSPECIFIED 03/04/2017 TRESSA REYNOSO APRN Ot R91.8 OTHER NONSPECIFIC ABNORMAL FINDING OF [place] 03/04/2017 TRESSA REYNOSO APRN Ot Z79.82 SHELTER (CURRENT) USE OF ASPIRIN 03/04/2017 TRESSA REYNOSO APRN Ot Z79.899 OTHER SHELTER (CURRENT) DRUG THERAPY 03/05/2017 TRESSA REYNOSO APRN Ot G47.30 SLEEP APNEA, UNSPECIFIED 03/05/2017 TRESSA REYNOSO APRN Ot I10 ESSENTIAL (PRIMARY) HYPERTENSION 03/05/2017 TRESSA REYNOSO APRN Ot I51.7 CARDIOMEGALY 03/05/2017 TRESSA REYNOSO APRN Ot J18.9 PNEUMONIA, UNSPECIFIED ORGANISM 03/05/2017 TRESSA REYNOSO APRN Ot R06.00 DYSPNEA, UNSPECIFIED 03/05/2017 TRESSA REYNOSO APRN Ot R91.8 OTHER NONSPECIFIC ABNORMAL FINDING OF [place] 03/05/2017 TRESSA REYNOSO APRN Ot 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 03/05/2017 TRESSA REYNOSO APRN Ot 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 03/06/2017 TRESSA REYNOSO APRN Ot G47.30 SLEEP APNEA, UNSPECIFIED 03/06/2017 TRESSA REYNOSO APRN Ot I10 ESSENTIAL (PRIMARY) HYPERTENSION 03/06/2017 TRESSA REYNOSO BALL RACKER Ot I51.7 CARDIOMEGALY 03/06/2017 TRESSA REYNOSO BALL RACKER Ot J18.9 PNEUMONIA, UNSPECIFIED ORGANISM 03/06/2017 TRESSA REYNOSO BALL RACKER Ot R06.00 DYSPNEA, UNSPECIFIED 03/06/2017 TRESSA REYNOSO BALL RACKER Ot R91.8 OTHER NONSPECIFIC ABNORMAL FINDING OF [place] 03/06/2017 TRESSA REYNOSO BALL RACKER Ot 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 03/06/2017 TRESSA REYNOSO BALL RACKER Ot Z79.899 OTHER SHELTER (CURRENT) DRUG THERAPY 03/20/2017 BARNEY MCCANN MD Ot N32.81 OVERACTIVE BLADDER 03/20/2017 BARNEY MCCANN MD Ot N36.42 INTRINSIC SPHINCTER DEFICIENCY (ISD) 03/20/2017 BARNEY MCCANN MD Ot N39.46 MIXED INCONTINENCE 03/20/2017 BARNEY MCCANN MD Ot Z01.818 ENCOUNTER FOR OTHER PREPROCEDURAL EXAMIN 03/24/2017 BARNEY MCCANN MD Ot I10 ESSENTIAL (PRIMARY) HYPERTENSION 03/24/2017 BARNEY MCCANN MD Ot N32.81 OVERACTIVE BLADDER 03/24/2017 BARNEY MCCANN MD Ot N36.42 INTRINSIC SPHINCTER DEFICIENCY (ISD) 03/24/2017 BARNEY MCCANN MD Ot N39.46 MIXED INCONTINENCE 03/24/2017 BARNEY MCCANN MD Ot 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 03/25/2017 BARNEY MCCANN MD Ot N32.81 OVERACTIVE BLADDER 03/25/2017 BARNEY MCCANN MD Ot N36.42 INTRINSIC SPHINCTER DEFICIENCY (ISD) 03/25/2017 BARNEY MCCANN MD Ot N39.46 MIXED INCONTINENCE 03/25/2017 BARNEY MCCANN MD Ot Z01.818 ENCOUNTER FOR OTHER PREPROCEDURAL EXAMIN 03/30/2017 BARNEY MCCANN MD Ot I10 ESSENTIAL (PRIMARY) HYPERTENSION 03/30/2017 BARNEY MCCANN MD Ot N32.81 OVERACTIVE BLADDER 03/30/2017 BARNEY MCCANN MD Ot N36.42 INTRINSIC SPHINCTER DEFICIENCY (ISD) 03/30/2017 BARNEY MCCANN MD Ot N39.46 MIXED INCONTINENCE 03/30/2017 RAMY SAMS, BARNEY Henderson Ot Z79.899 OTHER SHELTER (CURRENT) DRUG THERAPY Procedures Code Description [place] [address] TB TEST INTRADERMAL 12/22/2012 10855 TB TEST INTRADERMAL 12/02/2013 Results Test Result Range Complete blood count (CBC) with automated white blood cell (WBC) differential - 07/18/16 19:44 Blood leukocytes automated count (number/volume) 6.8 10*3/ uL 4.3-11.0 Blood erythrocytes automated count (number/volume) 4.98 10*6 /uL 4.35-5.85 Venous blood hemoglobin measurement (mass/volume) 15.2 g/dL 11.5-16.0 Blood hematocrit (volume fraction) 45 % 35-52 Automated erythrocyte mean corpuscular volume 90 [foz_us] 80-99 Automated erythrocyte mean corpuscular hemoglobin (mass per erythrocyte) 31 pg 25-34 Automated erythrocyte mean corpuscular hemoglobin concentration measurement ( mass/volume) 34 g/dL 32-36 Automated erythrocyte distribution width ratio 12.3 % 10.0-14.5 Automated blood platelet count (count/volume) 197 10*3/uL 130-400 Automated blood platelet mean volume measurement 10.4 [foz_ us] 7.4-10.4 Automated blood neutrophils/100 leukocytes 56 % 42-75 Automated blood lymphocytes/100 leukocytes 32 % 12-44 Blood monocytes/100 leukocytes 6 % 0-12 Automated blood eosinophils/100 leukocytes 6 % 0-10 Automated blood basophils/100 leukocytes 0 % 0-10 Blood neutrophils automated count (number/volume) 3.8 10*3 1.8-7.8 Blood lymphocytes automated count (number/volume) 2.2 10*3 1.0-4.0 Blood monocytes automated count (number/volume) 0.4 10*3 0.0-1.0 Automated eosinophil count 0.4 10*3/uL 0.0-0.3 Automated blood basophil count (count/volume) 0.0 10*3/uL 0.0-0.1 Whole blood basic metabolic panel - 07/18/16 19:44 Serum or plasma sodium measurement (moles/volume) 140 mmol/ L 135-145 Serum or plasma potassium measurement (moles/volume) 4.1 mmol/L 3.6-5.0 Serum or plasma chloride measurement (moles/volume) 104 mmol /L 98-107 Carbon dioxide 23 mmol/L 21-32 Serum or plasma anion gap determination (moles/volume) 13 mmol/L 5-14 Serum or plasma urea nitrogen measurement (mass/volume) 14 mg/dL 7-18 Serum or plasma creatinine measurement (mass/volume) 0.71 mg /dL 0.60-1.30 Serum or plasma urea nitrogen/creatinine mass ratio 20 NRG Serum or plasma creatinine measurement with calculation of estimated glomerular filtration rate > NRG Serum or plasma glucose measurement (mass/volume) 94 mg/dL 70-105 Serum or plasma calcium measurement (mass/volume) 10.1 mg/ dL 8.5-10.1 Serum or plasma C reactive protein measurement (mass/volume) - 07/18/16 19:44 Serum or plasma C reactive protein measurement (mass/volume) 1.86 mg/dL 0.00-0.50 Erythrocyte sedimentation rate by westergren method - 07/18/16 19:44 Erythrocyte sedimentation rate by westergren method 40 mm 0-30 Complete blood count (CBC) with automated white blood cell (WBC) differential - 11/16/16 13:48 Blood leukocytes automated count (number/volume) 5.7 10*3/ uL 4.3-11.0 Blood erythrocytes automated count (number/volume) 4.40 10*6 /uL 4.35-5.85 Venous blood hemoglobin measurement (mass/volume) 13.6 g/dL 11.5-16.0 Blood hematocrit (volume fraction) 40 % 35-52 Automated erythrocyte mean corpuscular volume 91 [foz_us] 80-99 Automated erythrocyte mean corpuscular hemoglobin (mass per erythrocyte) 31 pg 25-34 Automated erythrocyte mean corpuscular hemoglobin concentration measurement ( mass/volume) 34 g/dL 32-36 Automated erythrocyte distribution width ratio 12.4 % 10.0-14.5 Automated blood platelet count (count/volume) 190 10*3/uL 130-400 Automated blood platelet mean volume measurement 11.0 [foz_ us] 7.4-10.4 Automated blood neutrophils/100 leukocytes 60 % 42-75 Automated blood lymphocytes/100 leukocytes 31 % 12-44 Blood monocytes/100 leukocytes 7 % 0-12 Automated blood eosinophils/100 leukocytes 2 % 0-10 Automated blood basophils/100 leukocytes 0 % 0-10 Blood neutrophils automated count (number/volume) 3.5 10*3 1.8-7.8 Blood lymphocytes automated count (number/volume) 1.8 10*3 1.0-4.0 Blood monocytes automated count (number/volume) 0.4 10*3 0.0-1.0 Automated eosinophil count 0.1 10*3/uL 0.0-0.3 Automated blood basophil count (count/volume) 0.0 10*3/uL 0.0-0.1 Comprehensive metabolic panel - 11/16/16 13:48 Serum or plasma sodium measurement (moles/volume) 139 mmol/ L 135-145 Serum or plasma potassium measurement (moles/volume) 3.2 mmol/L 3.6-5.0 Serum or plasma chloride measurement (moles/volume) 104 mmol /L 98-107 Carbon dioxide 26 mmol/L 21-32 Serum or plasma anion gap determination (moles/volume) 9 mmol/L 5-14 Serum or plasma urea nitrogen measurement (mass/volume) 7 mg /dL 7-18 Serum or plasma creatinine measurement (mass/volume) 0.66 mg /dL 0.60-1.30 Serum or plasma urea nitrogen/creatinine mass ratio 11 NRG Serum or plasma creatinine measurement with calculation of estimated glomerular filtration rate > NRG Serum or plasma glucose measurement (mass/volume) 95 mg/dL 70-105 Serum or plasma calcium measurement (mass/volume) 9.0 mg/dL 8.5-10.1 Serum or plasma total bilirubin measurement (mass/volume) 0.5 mg/dL 0.1-1.0 Serum or plasma alkaline phosphatase measurement (enzymatic activity/volume) 82 U/L 40-136 Serum or plasma aspartate aminotransferase measurement (enzymatic activity/ volume) 18 U/L 5-34 Serum or plasma alanine aminotransferase measurement (enzymatic activity/volume ) 10 U/L 0-55 Serum or plasma protein measurement (mass/volume) 6.3 g/dL 6.4-8.2 Serum or plasma albumin measurement (mass/volume) 3.5 g/dL 3.2-4.5 Serum or plasma uric acid measurement (mass/volume) - 11/16/16 13:48 Serum or plasma uric acid measurement (mass/volume) 4.6 mg/ dL 2.6-7.2 Erythrocyte sedimentation rate by westergren method - 11/16/16 13:48 Erythrocyte sedimentation rate by westergren method 35 mm 0-30 Complete blood count (CBC) with automated white blood cell (WBC) differential - 03/04/17 16:06 Blood leukocytes automated count (number/volume) 8.3 10*3/ uL 4.3-11.0 Blood erythrocytes automated count (number/volume) 4.19 10*6 /uL 4.35-5.85 Venous blood hemoglobin measurement (mass/volume) 12.9 g/dL 11.5-16.0 Blood hematocrit (volume fraction) 39 % 35-52 Automated erythrocyte mean corpuscular volume 93 [foz_us] 80-99 Automated erythrocyte mean corpuscular hemoglobin (mass per erythrocyte) 31 pg 25-34 Automated erythrocyte mean corpuscular hemoglobin concentration measurement ( mass/volume) 33 g/dL 32-36 Automated erythrocyte distribution width ratio 13.3 % 10.0-14.5 Automated blood platelet count (count/volume) 197 10*3/uL 130-400 Automated blood platelet mean volume measurement 10.8 [foz_ us] 7.4-10.4 Automated blood neutrophils/100 leukocytes 63 % 42-75 Automated blood lymphocytes/100 leukocytes 26 % 12-44 Blood monocytes/100 leukocytes 8 % 0-12 Automated blood eosinophils/100 leukocytes 3 % 0-10 Automated blood basophils/100 leukocytes 0 % 0-10 Blood neutrophils automated count (number/volume) 5.3 10*3 1.8-7.8 Blood lymphocytes automated count (number/volume) 2.1 10*3 1.0-4.0 Blood monocytes automated count (number/volume) 0.7 10*3 0.0-1.0 Automated eosinophil count 0.3 10*3/uL 0.0-0.3 Automated blood basophil count (count/volume) 0.0 10*3/uL 0.0-0.1 Comprehensive metabolic panel - 03/04/17 16:06 Serum or plasma sodium measurement (moles/volume) 140 mmol/ L 135-145 Serum or plasma potassium measurement (moles/volume) 4.1 mmol/L 3.6-5.0 Serum or plasma chloride measurement (moles/volume) 105 mmol /L 98-107 Carbon dioxide 26 mmol/L 21-32 Serum or plasma anion gap determination (moles/volume) 9 mmol/L 5-14 Serum or plasma urea nitrogen measurement (mass/volume) 12 mg/dL 7-18 Serum or plasma creatinine measurement (mass/volume) 0.66 mg /dL 0.60-1.30 Serum or plasma urea nitrogen/creatinine mass ratio 18 NRG Serum or plasma creatinine measurement with calculation of estimated glomerular filtration rate > NRG Serum or plasma glucose measurement (mass/volume) 91 mg/dL 70-105 Serum or plasma calcium measurement (mass/volume) 9.2 mg/dL 8.5-10.1 Serum or plasma total bilirubin measurement (mass/volume) 0.7 mg/dL 0.1-1.0 Serum or plasma alkaline phosphatase measurement (enzymatic activity/volume) 86 U/L 40-136 Serum or plasma aspartate aminotransferase measurement (enzymatic activity/ volume) 18 U/L 5-34 Serum or plasma alanine aminotransferase measurement (enzymatic activity/volume ) 9 U/L 0-55 Serum or plasma protein measurement (mass/volume) 6.6 g/dL 6.4-8.2 Serum or plasma albumin measurement (mass/volume) 3.6 g/dL 3.2-4.5 Serum or plasma troponin i.cardiac measurement (mass/volume) - 03/04/17 16:06 Serum or plasma troponin i.cardiac measurement (mass/volume) < ng/mL <0.30 Serum or plasma lithium measurement (moles/volume) - 03/04/17 16:06 BNP level 19.9 pg/mL <100.0 Methicillin resistant Staphylococcus aureus (MRSA) screening culture - 08:25 Methicillin resistant Staphylococcus aureus (MRSA) screening culture NEG NRG Methicillin resistant Staphylococcus aureus (MRSA) screening culture - 06:35 Methicillin resistant Staphylococcus aureus (MRSA) screening culture NEG NRG Encounters ACCT No. Visit Date/Time Discharge Status Pt. Type Provider Facility Loc./Unit Complaint [id number] 12/02/2013 07:56:00 12/02/2013 23: 59:59 CLS Outpatient LEIGH MUÑIZ DO [id number] 12/22/2012 11:32:00 12/22/2012 23: 59:59 CLS Outpatient
== END 2017-05-13 11:30 | disposition home or self-care (01) ==
LOC: SDC 06:06 → EDSTATUS 08:00 → 4TH 10:02 → SDC 05-13 11:30
PROVIDERS: ATTEND Urology
DX: N36.42 Intrinsic sphincter deficiency (ISD) (principal); N39.46 Mixed incontinence; N32.81 Overactive bladder; I10 Essential (primary) hypertension; Z79.899 Other long term (current) drug therapy
CPT/HCPCS: 87081; 94664

== ENCOUNTER 2017-07-03 10:01 | Emergency (ER) | payer MEDICARE, MEDICAID ==
[~2017-07-03] VITALS: Ht 157.5 cm; Wt 99.8 kg
[~2017-07-03 10:01] MED LIST changes: +CIPR-225 PO
--- NOTE | 2017-07-03 10:53 | ED Upper Extremity ---
General Chief Complaint: Upper Extremity Stated Complaint: RT ARM SHOULDER PAIN Nursing Triage Note: PT REPORTS TRIPPING OVER CURB AND FALLING 3 DAYS AGO. SHE IS C/O R UPPER ARM PAIN. SHE STATES SHE SAW HER PCP YESTERDAY, BUT DID NOT NOTIFY THEM OF INJURY. Nursing Sepsis Screen: No Definite Risk Source: patient Exam Limitations: no limitations History of Present Illness Time seen by provider: 10:35 Initial Comments Here with complaint of right shoulder pain after tripping and falling over a curb 3 days ago. The pain was worse last night. It is centered around the area of the anterior lateral shoulder. Pain with lifting her arm and forward flexion. Denies numbness or weakness in her hands. Denies other injury. Did not hit her head and did not lose consciousness. Onset: other (3 days ago) Severity: moderate Pain/Injury Location: right shoulder Method of Injury: fell Modifying Factors: Improves With Immobilization, Worse With Movement Allergies and Home Medications Allergies Coded Allergies: acetaminophen (Verified Allergy, Unknown, 03/03/16) cortisone (Verified Allergy, Unknown, 03/19/17) meperidine HCl (Verified Allergy, Unknown, 03/03/16) methadone (Verified Allergy, Unknown, 03/03/16) oxycodone HCl (Verified Allergy, Unknown, 03/03/16) Uncoded Allergies: TAPE (Allergy, Unknown, 03/03/16) Home Medications Allopurinol 300 Mg Tablet, 300 MG PO DAILY, (Reported) Ascorbate Calcium 500 Mg Tablet, 500 MG PO DAILY, (Reported) Calcium Carbonate 600 Mg Tablet, 600 MG PO DAILY, (Reported) Cetirizine Hcl 10 Mg Tablet, 10 MG PO DAILY, (Reported) Cholecalciferol (Vitamin D3) 1,000 Unit Tablet, 1,000 UNIT PO TID, (Reported) Ciprofloxacin HCl 500 Mg Tablet, 500 MG PO BID for 5 Days Prescribed by: BARNEY MCCANN on 05/13/17 1043 Folic Acid/Multivit-Minerals 200 Mcg Tab.chew, 200 MCG PO DAILY, (Reported) Gabapentin 100 Mg Capsule, 100 MG PO TID, #90 (Reported) Lansoprazole 30 Mg Capsule.dr, 30 MG PO DAILY, (Reported) Lisinopril 20 Mg Tablet, 20 MG PO HS, (Reported) Meclizine HCl 25 Mg Tablet, 25 MG PO TID, (Reported) Meloxicam 7.5 Mg Tablet, 7.5 MG PO BID, (Reported) Metoprolol Succinate 25 Mg Tab.er.24h, 25 MG PO DAILY, (Reported) Tramadol HCl 50 Mg Tablet, 100 MG PO Q6H, (Reported) TWO TABLETS OF 50 MG FOR 100 MG TOTAL DOSE Constitutional: see HPI, No chills, No fever Respiratory: no symptoms reported Cardiovascular: no symptoms reported Musculoskeletal: see HPI, joint pain, muscle pain, muscle stiffness, No muscle weakness Psychiatric/Neurological: Denies Anxiety, Denies Headache, Denies Numbness, Denies Paresthesia, Denies Tingling Past Njthbtp-Bzflej-Mrlumw Hx Patient Social History Alcohol Use: Denies Use Recreational Drug Use: No Smoking Status: Never a Smoker 2nd Hand Smoke Exposure: No Recent Foreign Travel: No Contact w/Someone Who Travel: No Recent Infectious Disease Expo: No Recent Hopitalizations: No Immunizations Up To Date Tetanus Booster (TDap): Unknown Seasonal Allergies Seasonal Allergies: Yes Surgeries HX Surgeries: Yes (cysts R hip, lap band, back x2 surgery,cataracts, lipomaR thigh, R femur fx) Surgeries: Abdominal, Gallbladder, Hysterectomy, Joint Replacement, Orthopedic , Tonsillectomy, Tubal Ligation Respiratory Hx Respiratory Disorders: Yes (had sleep test, no apnea, but O2 sats drop, wears oxygen at hs) Cardiovascular Hx Cardiac Disorders: Yes (SVT) Cardiac Disorders: Heart Murmur, Hypertension, Irregular Heartbeat Neurological Hx Neurological Disorders: Yes Neurological Disorders: Headaches /Migraines, Vertigo Reproductive System Hx Reproductive Disorders: No [employer] History: Hysterectomy Genitourinary Hx Genitourinary Disorders: Yes (overactive bladder) Gastrointestinal Hx Gastrointestinal Disorders: No Musculoskeletal Hx Musculoskeletal Disorders: Yes (multiple back surgeries) Musculoskeletal Disorders: Fibromyalgia, Chronic Back Pain, Gout Endocrine Hx Endocrine Disorders: No HEENT HX ENT Disorders: No (cataracts removed) Cancer Hx Cancer: No Psychosocial Hx Psychiatric Problems: No Integumentary HX Skin/Integumentary Disorder: No Blood Transfusions Hx Blood Disorders: No Reviewed Nursing Assessment Reviewed/Agree w Nursing PMH: Yes Physical Exam Vital Signs Vital Sign - Last 12Hours 07/03/17 10:13 Temp 98.2 Pulse 63 Resp 20 B/P (MAP) 144/81 Pulse Ox 97 O2 Delivery Room Air Capillary Refill : Less Than 3 Seconds General Appearance: WD/WN, no apparent distress Neck: full range of motion, supple Cardiovascular: regular rate, rhythm, no murmur Respiratory: lungs clear, normal breath sounds Back: normal inspection, no CVA tenderness, no vertebral tenderness Shoulder: limited ROM (pain limited especially in forward flexion and opposition to downward press on extended arm.), soft tissue tenderness (right anterior lateral shoulder along the rotator cuff muscles.) Elbow/Forearm: non-tender, no evidence of injury, normal ROM, Right Wrist: Yes non-tender, Yes no evidence of injury, Yes normal ROM Hand: non-tender, no evidence of injury, normal ROM, Right Neurologic/Psychiatric: alert, oriented x 3 Skin: normal color, warm/dry Progress/Results/Core Measures Results/Orders My Orders Orders - SILAS LOVE MD Shoulder, Right, 3 Views (07/03/17 10:31) Vital Signs/I&O Vital Sign - Last 12Hours 07/03/17 10:13 Temp 98.2 Pulse 63 Resp 20 B/P (MAP) 144/81 Pulse Ox 97 O2 Delivery Room Air Blood Pressure Mean: 102 Progress Note : Progress Note Seen and evaluated. X-ray right shoulder ordered. Patient declined pain medicine at this time. Monitor patient. 1120: No acute fracture. Hydrocodone 5/325 one tab by mouth given. Sling given. Discharged home with return precautions. Patient verbalize understanding instructions and agreement with plan. Diagnostic Imaging Diagonstic Imaging: Xray Plain Films/CT/US/NM/MRI: other (shoulder) Comments VIA [facility]. [place], [place] NAME: [facility] REC#: [id number] PT STATUS: REG ER : 1955 PHYSICIAN: SILAS LOVE MD ADMIT DATE: 07/03/17/ER Draft Date of Exam:07/03/17 SHOULDER, RIGHT, 3 VIEWS INDICATION: Shoulder pain following fall on outstretched hand. Correlated with chest radiograph 03/04/2017. FINDINGS: Dislocation of the glenohumeral joint. AC joint intact. No fracture could be identified. No opaque loose body. IMPRESSION: No acute or posttraumatic sequelae radiographically apparent. Dictated on workstation # [id number] Dict: 07/03/17 1059 Trans: 07/03/17 1101 [facility] [id number] Interpreted by: ROSALINDA HERNÁNDEZ Electronically signed by: Departure Impression Impression: Primary Impression: Right shoulder strain Qualified Codes: S46.911A - Strain of unspecified muscle, fascia and tendon at shoulder and upper arm level, right arm, initial encounter Disposition: HOME, SELF-CARE Condition: Stable Departure-Patient Inst. Decision time for Depature: 11:25 Referrals: BEATRIZ DURBIN DO (PCP/Family) Primary Care Physician Patient Instructions: Shoulder Sprain (DC) Add. Discharge Instructions: All discharge instructions reviewed with patient and/or family. Voiced understanding. Follow-up with your primary care doctor and/or orthopedist related to your shoulder injury. Return for worse pain, fever, vomiting, weakness, breathing problems or other concerns as needed. Continue home medications as directed except for do not take the tramadol at the same time you are taking the prescribed pain medicine. Scripts Hydrocodone/Acetaminophen (Hydrocodon -Acetaminophen 5-325) 1 Each Tablet 1-2 EACH PO Q6H Y for pain, #15 TAB 0 Refills Prov: SILAS LOVE MD 07/03/17 SILAS LOVE MD Jul 03, 2017 10:53
--- NOTE | 2017-07-03 11:02 | Diagnostic Imaging Report ---
INDICATION: Shoulder pain following fall on outstretched hand. Correlated with chest radiograph 03/04/2017. FINDINGS: Dislocation of the glenohumeral joint. AC joint intact. No fracture could be identified. No opaque loose body. IMPRESSION: No acute or posttraumatic sequelae radiographically apparent. Dictated by: Dictated on workstation # [id number]
[2017-07-03] MEDS ORDERED: HYDROcodone/APAP 5 MG/325 MG (LORTAB) TAB PO STA (11:21)
[2017-07-03] MEDS ORDERED: HYDR-3812 PO (11:27)
[2017-07-03 11:41] VITALS: BP 144/81
== END 2017-07-03 11:41 | disposition home or self-care (01) ==
LOC: EDUNIT# 10:01 → ER 10:04
DX: S46.911A Strain of unspecified muscle, fascia and tendon at shoulder and upper arm level, right arm, initial encounter (principal); I10 Essential (primary) hypertension; G43.909 Migraine, unspecified, not intractable, without status migrainosus; M10.9 Gout, unspecified; Z98.51 Tubal ligation status; Z90.710 Acquired absence of both cervix and uterus; Z96.641 Presence of right artificial hip joint; Z98.84 Bariatric surgery status; W01.0XXA Fall on same level from slipping, tripping and stumbling without subsequent striking against object, initial encounter; Y92.480 Sidewalk as the place of occurrence of the external cause
CPT/HCPCS: 73030; 99283

== ENCOUNTER → 2017-07-20 | Outpatient (CLI) | payer MEDICARE, MEDICAID ==
[~2017-07-20] MED LIST changes: +HYDR-3812 PO
== END ==
LOC: RAD 09:08
PROVIDERS: ATTEND Obstetrics & Gynecology
DX: Z12.31 Encounter for screening mammogram for malignant neoplasm of breast (principal)
CPT/HCPCS: 77067

== ENCOUNTER 2017-07-28 09:05 | Outpatient (RCR) | payer MEDICARE, MEDICAID | END 2017-08-12 09:17 | disposition home or self-care (01) | PROVIDERS: ATTEND Internal Medicine | DX: S43.011A Anterior subluxation of right humerus, initial encounter (principal); W19.XXXA Unspecified fall, initial encounter ==

== ENCOUNTER → 2017-08-21 | Outpatient (CLI) | payer MEDICARE, MEDICAID ==
[2017-08-21 09:12] LABS: ALANINE AMINOTRANSFERASE 14 U/L (0-55); ALBUMIN 3.6 GM/DL (3.2-4.5); ANION GAP 6 MMOL/L (5-14); ASPARTATE AMINO TRANSFERASE 19 U/L (5-34); BILIRUBIN,TOTAL 0.6 MG/DL (0.1-1.0); BLOOD UREA NITROGEN 16 MG/DL (7-18); BUN/CREATININE RATIO 24; CALCIUM 9.3 MG/DL (8.5-10.1); CARBON DIOXIDE 30 MMOL/L (21-32); CHLORIDE 105 MMOL/L (98-107); CHOLESTEROL 168 MG/DL (< 200); CREATININE SERUM 0.68 MG/DL (0.60-1.30); DIRECT LDL 106 MG/DL (1-129); GFR ESTIMATED > 60; GLUCOSE 83 MG/DL (70-105); POTASSIUM 3.8 MMOL/L (3.6-5.0); SODIUM 141 MMOL/L (135-145); TOTAL PROTEIN 6.8 GM/DL (6.4-8.2); TRIGLYCERIDES 87 MG/DL (<150); VLDL CHOLESTEROL 17 MG/DL (5-40)
== END ==
LOC: LAB 08:21
PROVIDERS: ATTEND Physician Assistant
DX: R07.89 Other chest pain (principal); M19.90 Unspecified osteoarthritis, unspecified site; I10 Essential (primary) hypertension; R00.2 Palpitations
CPT/HCPCS: 36415; 80053; 80061

== ENCOUNTER 2017-11-19 08:30 | Outpatient (RCR) | payer MEDICARE, MEDICAID ==
[~2017-11-19 08:30] MED LIST changes: +ACHD5005 PO; -HYDR-3812 PO
== END 2017-11-24 15:22 | disposition home or self-care (01) ==
PROVIDERS: ATTEND Orthopaedic Surgery
DX: Z47.89 Encounter for other orthopedic aftercare (principal)

== ENCOUNTER 2017-12-15 11:14 | Outpatient (RCR) | payer MEDICARE, MEDICAID | END 2018-01-07 11:30 | disposition home or self-care (01) | PROVIDERS: ATTEND Orthopaedic Surgery | DX: Z47.89 Encounter for other orthopedic aftercare (principal); S72.91XD Unspecified fracture of right femur, subsequent encounter for closed fracture with routine healing; V99.XXXD Unspecified transport accident, subsequent encounter ==

== ENCOUNTER 2018-06-03 09:35 | Outpatient (RCR) | payer MEDICARE, MEDICAID | END 2018-06-03 10:08 | disposition home or self-care (01) | PROVIDERS: ATTEND Student in an Organized Health Care Education/Training Program | DX: M54.2 Cervicalgia (principal); M25.511 Pain in right shoulder; R20.0 Anesthesia of skin ==